=== PATIENT | female | born 1945 | race Caucasian/White ===

== ENCOUNTER 2024-04-26 23:52 | Observation (INO) | payer MEDICARE, OTHER, SELFPAY ==
[2024-04-26 23:52] VITALS: BP 150/68; PULSE 84; TEMP 36.9; O2SAT 95; BMI 22.7
--- NOTE | 2024-04-27 00:14 | ED.BACK1 ---
HPI HPI - Back Pain/Injury General Chief Complaint: Back Pain/Injury Stated Complaint: OTHER Time Seen by Provider: 04/26/24 23:59 Source: patient Mode of arrival: ambulance Limitations: no limitations History of Present Illness HPI Narrative: This 78-year-old female is brought to the emergency department by EMS from home. She had a fall on Saturday and injured her low back. She states that she was wearing slippery socks and lost her balance and slid down the wall and fell right onto her buttocks. She was seen yesterday at [facility] emergency department and had x-rays done. Her family physician had given her a prescription for tramadol which she has been using for pain. She states it does not help her pain that much but makes her sleep. Her granddaughter is here with her. Her granddaughter lives with her. She states she has not been out of bed all day and she is concerned that there is something wrong. The patient is having pain in the right lower lumbar region and right hip. Granddaughter states she can barely walk. The patient admits that she hit her head when she fell but does not think it is an issue. She has no neck pain. She wears a depends but denies any loss of bowel or bladder control which is unusual for her. She has generalized weakness with no specific lower extremity weakness. She has no focal neurologic deficits. She denies any chest pain or shortness of breath. The patient has not really been eating or drinking all day today because she has been sleeping and the pain medication upsets her stomach. Related Data Home Medications ?Medication ?Instructions ?Recorded ?Confirmed bisoprolol 5 1 tab PO DAILY 04/27/24 04/27/24 mg-hydrochlorothiazide 6.25 mg tablet cilostazol 50 mg tablet 50 mg PO BID 04/27/24 04/27/24 latanoprost 0.005 % eye drops 1 drp ophthalmic (eye) DAILY 04/27/24 04/27/24 levothyroxine 88 mcg tablet 88 mcg PO DAILY 04/27/24 04/27/24 ropinirole 1 mg tablet 1 mg PO DAILY 04/27/24 04/27/24 tramadol 50 mg tablet 50 mg PO Q6H PRN pain 04/27/24 04/27/24 Allergies Allergy/AdvReac Type Severity Reaction Status Date / Time Penicillins Allergy Unknown Unknown Verified 04/26/24 23:57 Opioid HPI Opioid Management Most Recent Opioid Data: Last Pain Scale 8 04/27/24 00:03 04/27/24 Last ORT Total Score 0 04/27/24 02:36 04/27/24 Last ORT Risk Category Low Risk 04/27/24 02:36 04/27/24 Review of Systems ROS Status of ROS 10 or more systems reviewed and unremarkable except as noted in history and below PFSH PFSH Social History Highest level of school completed/degree received: Master's degree Little interest or pleasure in doing things: not at all Feeling down, depressed, or hopeless: not at all Exam Narrative Exam Narrative: Vital signs and Nursing Notes reviewed: Patient is afebrile with a normal pulse, blood pressure is elevated at 150/68, she is not hypoxic with pulse ox of 95% on room air General: Awake, alert, oriented, nontoxic elderly female, she winces in pain with any movement of her low back, GCS 15, no respiratory distress HEENT: Normocephalic atraumatic, mucous membranes are moist and pink, eyes are clear, normal conjunctiva, vision is grossly intact, Neck: Supple, no midline bony vertebral cervical tenderness Chest: Lungs are clear to auscultation with good air entry, there is no wheezing rhonchi or rales appreciated no accessory muscle use, patient is speaking in complete sentences-no chest wall tenderness to palpation CVS: Regular rate and rhythm S1-S2, no murmurs rubs or gallops, pulses are brisk and equal bilaterally ABD: Soft, nondistended, nontender, no rebound guarding or rigidity, bowel sounds are normal, no pulsatile masses appreciated, stable pelvic rock Extremities: There is tenderness in the right lateral lumbar region with no midline bony vertebral tenderness or step-off. There is no ecchymosis noted, there is mild tenderness with extension at the right hip. Leg lengths are equal Skin: Normal in appearance without rash,pallor, petechiae or purpura Neuro: No focal deficits Constitutional Vital Signs, click to edit/add: Last Vital Signs Temp 97.9 F 04/27/24 02:36 Pulse 74 04/27/24 02:36 Resp 16 04/27/24 02:36 BP 143/68 H 04/27/24 02:36 Pulse Ox 93 L 04/27/24 02:36 O2 Del Method Room Air 04/27/24 02:36 Course Vital Signs Vital signs: Vital Signs Temperature 98.5 F 04/26/24 23:52 Pulse Rate 84 04/26/24 23:52 Respiratory Rate 18 04/26/24 23:52 Blood Pressure 150/68 H 04/26/24 23:52 Pulse Oximetry 95 04/26/24 23:52 Oxygen Delivery Method Room Air 04/26/24 23:52 Temperature 97.9 F 04/27/24 02:36 Pulse Rate 74 04/27/24 02:36 Respiratory Rate 16 04/27/24 02:36 Blood Pressure 143/68 H 04/27/24 02:36 Pulse Oximetry 93 L 04/27/24 02:36 Oxygen Delivery Method Room Air 04/27/24 02:36 MDM - Back Pain/Injury MDM Narrative Medical decision making narrative: This 78-year-old female presents for evaluation of right low back pain and right hip pain after falling several days ago. The patient had a mechanical fall. She states that she was wearing slippery slot socks and slipped and fell down the wall landing on her buttocks. She denies any loss of consciousness. She has no neck pain. She received a prescription for tramadol from her family physician which has not been helping with her pain but just making her sleep. Her granddaughter took her to [facility] emergency department last night and x-rays were performed that were negative and she was discharged home. She was return to the emergency department by EMS because she is unable to weight-bear due to pain in the right low back. She is able to flex her right knee but does have some hip pain with flexion of the knee. She is tender in the right lower lumbar region but does not have any midline bony vertebral tenderness or step-offs. An IV was placed and she was medicated with Zofran, morphine and Toradol. Her pain was somewhat controlled and routine labs were ordered. She has a normal white count and hemoglobin. Electrolytes are normal. I had ordered a urine and her nurse attempted to help her to the restroom but the patient was unable to successfully sit up and transfer independently to acquire the urine. She stated at that time she felt like she was having muscle spasms in her low back. She was then given IM Norflex. Due to her inability to weight-bear she will be admitted. CT scan of the lumbar spine shows chronic changes with degenerative disc disease but no acute fracture. CT scan of the right hip was also ordered. The results of the CT scan of the hip are not available yet however I reviewed them myself and do not see any notable fracture. The case was discussed with the hospitalist. She will be admitted for pain control and a physical therapy consult. She may require admission to a rehab facility if she is unable to weight-bear after her pain is under control. She has not had any neurologic symptoms including loss of bowel or bladder control. She has no weakness or numbness. Patient and her granddaughter are in agreement with admission. Medical Records Medical records narrative: [place] [address] CT Scan Report Signed Patient: INGRID ARCHIBALD V MR#: [id number] : 1945 Acct:[id number] Age/Sex: 78 / F ADM Date: 04/26/24 Loc: ER Attending Dr: Ordering Physician: Sylvia Ferrell Date of Service: 04/27/24 Procedure(s): CT lumbar spine wo con Accession Number(s): [id number] cc: WINNIE GRACE [facility] [place] [id number] Patient Name: INGRID ARCHIBALD MRN: [id number] date: 1945 Sex: F Assigned Patient Location: ER Current Patient Location: ER Accession/Order Number: [id number] Exam Date: 04/27/2024 00:27 Report Date: 04/27/2024 01:23 At the request of: SYLVIA FERRELL Procedure: CT lumbar spine wo con EXAM: CT lumbar spine wo con HISTORY: Low back and right hip pain after a fall 3 days ago. COMPARISON: None. TECHNIQUE: Axial images of the lumbar spine were obtained without contrast enhancement. Sagittal and coronal reformations were provided. FINDINGS: ALIGNMENT/BONY STRUCTURES: The bones are osteopenic. There is a levoconvex curvature of the vertebral column with apex at L2. No CT evidence of an acute fracture or loss of vertebral body height. There is a mild grade 1 anterolisthesis of L4 on L5 due to facet degenerative change. Multilevel loss of disc space and vacuum disc phenomenon are noted. Osteophytes and reactive sclerosis are also seen along the endplates at several levels. CORD/CONUS: The cord and conus are poorly seen and not well evaluated on this noncontrast CT. OTHER SPINAL FINDINGS: None. DISC SPACES: Multilevel disc bulging, as well as facet degenerative change and thickening of the ligamentum flavum result in areas of canal and foraminal stenosis. NON SPINAL FINDINGS: None. CT/CT lumbar spine wo con IMPRESSION: 1. Osteopenia. 2. Levoconvex scoliosis. 3. Lumbar spondylosis without CT evidence of an acute fracture. Electronically authenticated by: HERMELINDA TOBAR Date: 04/27/2024 01:23 [place] [address] CT Scan Report Signed Patient: INGRID ARCHIBALD V MR#: [id number] : 1945 Acct:[id number] Age/Sex: 78 / F ADM Date: 04/26/24 Loc: [place] 214-[address]: Elena Arango D.O. Ordering Physician: Sylvia Ferrell Date of Service: 04/27/24 Procedure(s): CT hip RT wo con Accession Number(s): [id number] cc: WINNIE GRACE [facility] [place] [id number] Patient Name: INGRID ARCHIBALD MRN: [id number] date: 1945 Sex: F Assigned Patient Location: ER Current Patient Location: [place] Accession/Order Number: [id number] Exam Date: 04/27/2024 00:27 Report Date: 04/27/2024 02:39 At the request of: SYLVIA FERRELL Procedure: CT hip RT wo con EXAM: CT hip RT wo con HISTORY: fall, right low back and hip pain COMPARISON: None. TECHNIQUE: Contiguous thin section axial scans obtained from mid iliac crest through the proximal right femoral diaphysis with coronal and sagittal reformatted images. Images reviewed in bone and soft tissue windows. Dose reduction techniques were achieved by using automated exposure control and/or adjustment of mA and/or kV according to patient size and/or use of iterative reconstruction technique. FINDINGS: No acute or healing fractures are seen in the right hemipelvis, right hip or along the imaged proximal right femur. Pubic rami are maintained. Osteoporosis suspected with significant osseous demineralization. No lytic or blastic bone lesion or destructive process. Right hip joint is well preserved. No narrowing. No joint effusion. Normal pubic symphysis. Inferior right SI joint is maintained. Normal appearance of muscles surrounding the right hip and proximal upper right femur and thigh. Skin and subcutaneous tissues are normal. No right inguinal adenopathy. No right hemipelvis fluid collection or mass or free fluid. No right inguinal hernia. CT/CT hip RT wo con IMPRESSION: 1. No acute bone or joint findings at right hip. 2. Suspected osteoporosis. No destructive changes. These imaging findings do not exclude additional clinically significant abnormalities. Given severe osteoporosis, this does not exclude underlying occult bone marrow edema. If patient cannot bear weight, consider additional MRI follow-up. This report should be interpreted in the context of clinical information including patient symptoms and available laboratory findings. Follow-up imaging or other interventions may be appropriate, if indicated by your clinical impression. Electronically authenticated by: GISELE MAHER Date: 04/27/2024 02:39 Lab Data Labs: Lab Results 04/26/24 Range/Units 23:56 WBC 6.8 (4.0-11.0) 10^3/uL RBC 4.00 L (4.20-5.40) 10^6/uL Hgb 13.1 (12.0-16.0) g/dL Hct 38.0 (36.0-48.0) % MCV 95.0 (81.0-99.0) fL MCH 32.8 (26.7-34.0) pg MCHC 34.5 (29.9-35.2) g/dL RDW 11.5 (11.0-15.0) % Plt Count 241 (150-450) 10^3/uL MPV 10.1 (9.5-13.5) fL Neut % (Auto) 72.2 (43.0-75.0) % Lymph % (Auto) 13.8 L (20.5-60.0) % [place] % (Auto) 13.0 H (1.7-12.0) % Eos % (Auto) 0.4 L (0.9-7.0) % Baso % (Auto) 0.3 (0.2-2.0) % Neut # (Auto) 4.9 (1.4-6.5) 10^3/uL Lymph # (Auto) 0.9 L (1.2-3.8) 10^3/uL [place] # (Auto) 0.9 H (0.3-0.8) 10^3/uL Eos # (Auto) 0.0 (0.0-0.7) 10^3/uL Baso # (Auto) 0.0 (0.0-0.1) 10^3/uL Abs Immat Gran (auto) 0.02 (0.00-0.03) 10^3/uL Imm/Tot Granulo (auto) 0.3 (0.0-0.5) % Sodium 138 (136-145) mmol/L Potassium 3.7 (3.5-5.1) mmol/L Chloride 100 (98-107) mmol/L Carbon Dioxide 28.0 (21.0-32.0) mmol/L Anion Gap 13.7 BUN 17.0 (7.0-18.0) mg/dL Creatinine 0.86 (0.55-1.02) mg/dL Est GFR ( Amer) >60 (>=60 mL/min/1.73m^2) Est GFR (Non-Af Amer) >60 (>=60 mL/min/1.73m^2) BUN/Creatinine Ratio 19.8 Glucose 121 H (74-106) mg/dL Calcium 9.2 (8.5-10.1) mg/dL Total Bilirubin 1.2 H (0.2-1.0) mg/dL AST 16 (15-37) U/L ALT 19 (14-59) U/L Alkaline Phosphatase 113 (46-116) U/L Total Protein 6.6 (6.4-8.2) g/dL Albumin 3.4 (3.4-5.0) g/dL Globulin 3.2 g/dL Albumin/Globulin Ratio 1.1 Discharge Plan Discharge Chief Complaint: Back Pain/Injury Clinical Impression: Strain of lumbar region, Fall from standing, Inability to bear weight Patient Disposition: Admitted as Observation Time of Disposition Decision: 02:47 Condition: Good
[2024-04-27 00:27] LABS: Basophils Percent Auto 0.3 % (0.2-2.0); Eosinophils Percent Auto 0.4 % (0.9-7.0); Hemoglobin 13.1 g/dL (12.0-16.0); Immature Granulocytes Abs Auto 0.02 10^3/uL (0.00-0.03); Immature Granulocytes Pct Auto 0.3 % (0.0-0.5); Lymphocytes Absolute Auto 0.9 10^3/uL (1.2-3.8); Lymphocytes Percent Auto 13.8 % (20.5-60.0); Mean Corpuscular HGB Conc 34.5 g/dL (29.9-35.2); Mean Corpuscular Hemoglobin 32.8 pg (26.7-34.0); Mean Platelet Volume 10.1 fL (9.5-13.5); Monocytes Absolute Auto 0.9 10^3/uL (0.3-0.8); Neutrophils Absolute Auto 4.9 10^3/uL (1.4-6.5); Neutrophils Percent Auto 72.2 % (43.0-75.0); Platelet Count 241 10^3/uL (150-450); Red Cell Distribution Width 11.5 % (11.0-15.0); White Blood Count 6.8 10^3/uL (4.0-11.0)
[2024-04-27] MEDS: ONDANSETRON PF 4 MG/2 ML VIAL IV (00:43)
[2024-04-27] MEDS: KETOROLAC TROMETHAMINE 30 MG/ML VIAL 15 MG IVP (00:43)
[2024-04-27] MEDS: MORPHINE SULFATE 2 MG/ML SYRINGE IV (00:43)
[2024-04-27 00:48] VITALS: PULSE 69; O2SAT 93
[2024-04-27 00:50] LABS: Alanine Aminotransferase 19 U/L (14-59); Albumin Globulin Ratio 1.1; Albumin Level 3.4 g/dL (3.4-5.0); Alkaline Phosphatase 113 U/L (46-116); Anion Gap 13.7; Aspartate Amino Transferase 16 U/L (15-37); BUN Creatinine Ratio 19.8; Bilirubin Total 1.2 mg/dL (0.2-1.0); Calcium 9.2 mg/dL (8.5-10.1); Chloride 100 mmol/L (98-107); Estimated GFR (African America >60 (>=60 mL/min/1.73m^2); Estimated GFR (Non-African Ame >60 (>=60 mL/min/1.73m^2); Globulin 3.2 g/dL; Glucose 121 mg/dL (74-106); Potassium 3.7 mmol/L (3.5-5.1); Sodium 138 mmol/L (136-145); Total Protein 6.6 g/dL (6.4-8.2)
[2024-04-27] MEDS: ORPHENADRINE 60 MG/ 2 ML VIAL IM (01:40)
[2024-04-27 02:23] VITALS: BP 143/68; PULSE 74; O2SAT 93
[2024-04-27 02:36] VITALS: BP 143/68; PULSE 74; TEMP 36.6; O2SAT 93; BMI 22.1
[2024-04-27 04:00] VITALS: BP 119/72; PULSE 79; TEMP 36.4; O2SAT 91
[2024-04-27] MEDS: LEVOTHYROXINE SODIUM 88 MCG TABLET PO (05:44)
[2024-04-27] MEDS: ENOXAPARIN SODIUM 40 MG/0.4 ML SYRINGE SUBQ (05:44)
[2024-04-27] MEDS: ACETAMINOPHEN 325 MG TABLET 1000 MG PO (05:44)
[2024-04-27 05:54] LABS: Basophils Percent Auto 0.5 % (0.2-2.0); Eosinophils Percent Auto 0.5 % (0.9-7.0); Hematocrit 34.3 % (36.0-48.0); Hemoglobin 11.8 g/dL (12.0-16.0); Immature Granulocytes Abs Auto 0.02 10^3/uL (0.00-0.03); Immature Granulocytes Pct Auto 0.4 % (0.0-0.5); Lymphocytes Absolute Auto 1.3 10^3/uL (1.2-3.8); Lymphocytes Percent Auto 22.1 % (20.5-60.0); Mean Corpuscular HGB Conc 34.4 g/dL (29.9-35.2); Mean Corpuscular Hemoglobin 32.7 pg (26.7-34.0); Mean Platelet Volume 10.2 fL (9.5-13.5); Monocytes Absolute Auto 0.8 10^3/uL (0.3-0.8); Monocytes Percent Auto 14.9 % (1.7-12.0); Neutrophils Absolute Auto 3.5 10^3/uL (1.4-6.5); Neutrophils Percent Auto 61.6 % (43.0-75.0); Platelet Count 221 10^3/uL (150-450); Red Blood Count 3.61 10^6/uL (4.20-5.40); Red Cell Distribution Width 11.4 % (11.0-15.0); White Blood Count 5.7 10^3/uL (4.0-11.0)
[2024-04-27 06:05] LABS: Anion Gap 13.2; BUN Creatinine Ratio 20.9; Calcium 8.8 mg/dL (8.5-10.1); Carbon Dioxide 26.5 mmol/L (21.0-32.0); Chloride 102 mmol/L (98-107); Estimated GFR (African America >60 (>=60 mL/min/1.73m^2); Estimated GFR (Non-African Ame >60 (>=60 mL/min/1.73m^2); Glucose 105 mg/dL (74-106); Magnesium 1.9 mg/dL (1.8-2.4); Potassium 3.7 mmol/L (3.5-5.1); Sodium 138 mmol/L (136-145)
[2024-04-27 07:39] VITALS: BP 135/62; PULSE 57; TEMP 36.7; O2SAT 91
--- NOTE | 2024-04-27 08:11 | CM.NOTE ---
Spoke with pt regarding insurance, pt was registered as self-pay. Pt does have Medicare with secondary insurance, copies made of card for billing.
--- NOTE | 2024-04-27 08:19 | PM.HP ---
HPI H&P: HPI History of Present Illness Chief complaint: OTHER Narrative: Patient is a 78 year old white female with past medical history of hypertension, Restless leg syndrome, hypothyroidism and osteoporosis who presented to the ER last night by EMS for back pain. She suffered a fall at home on saturday and was seen at [facility] ER where X-rays where negative for any acute fracture and she was given Tramadol for pain. The pain medication makes her very drowsy. She was not able to get out of bed so grand daughter who also lives with her called EMS. Upon presentation to the ER she could not get out of bed to get to the restroom. She has not loss of bowel or bladder, no fevers or chills. Pain is localized to the right lower back and right hip. ER findings: CT of the lumbar spine and right hip was negative for any acute fracture, possible osteoporosis seen. patient was given Toradol, Morphine for pain and admitted to the hospitalist service for weakness, immobility and intractable pain. CBC and BMP were unremarkable. This morning on exam she says her pain is much improved. Opioid HPI Opioid Management Most Recent Pain and Opioid Data: Last Pain Scale 3 04/27/24 11:00 04/27/24 Last Pain Assessment 04/27/24 11:00 Last MAR Pain Assessment 04/27/24 10:57 Last ORT Total Score 0 04/27/24 02:36 04/27/24 Last ORT Risk Category Low Risk 04/27/24 02:36 04/27/24 Review of Systems ROS Narrative ROS: a complete review of systems were reviewed with patient and are positive as below or listed in History of Chief Complaint. General: no fever, chills, night sweats Head: no headache, trauma, visual changes, nausea or vomiting Skin: no reported rashes, itching or sores Eyes: no blurriness of vision Ears: no reported hearing loss, vertigo, earache, or tinnitus Throat: no sore throat, hoarseness, swelling of neck, or tongue pain Heart: no chest pain Lungs: no shortness of breath or cough GI: no diarrhea or vomiting/nausea Urinary: no urinary urgency, frequency or pain Neuro: no numbness or tingling, right hip and low back pain HEM: no bleeding issues or bruising ENDO: thyroid problems Psych: no anxiety or depression [facility] Medical History (Updated 04/27/24 @ 08:32 by Elena Arango DO) Primary hypertension ?I10 - Essential (primary) hypertension (ICD-10) Restless leg syndrome ?G25.81 - Restless legs syndrome (ICD-10) Hypothyroid ?E03.9 - Hypothyroidism, unspecified (ICD-10) Neuropathy ?G62.9 - Polyneuropathy, unspecified (ICD-10) Surgical History Hx of cholecystectomy ?Z90.49 - Acquired absence of other specified parts of digestive tract (ICD-10) Family History Son Family history of cancer Family history of diabetes mellitus Other Family history of stroke Social History Within the past year, how often did you have a drink containing alcohol: 4 or more times a week Within the past year, how many standard drinks containing alcohol did you have on a typical day: 1 or 2 Within the past year, how often did you have six or more drinks on one occasion: never Total score: 0 Score interpretation: Questions 2 and 3 are 0. It can be assumed that the patient's drinking is below the recommended limits. However, please confirm the accuracy of the patient's alcohol intake over the last few months. Smoking status: Never smoker Non-prescribed substance use: denies use Highest level of school completed/degree received: Master's degree Are you now , , , , never or living with a partner: In a typical week, how many times do you talk on the telephone with family, friends, or neighbors: 3 or more times per week How often do you get together with friends or relatives: 3 or more times per week How often do you attend spiritism or moravian services: 4 or more times per year Do you belong to any clubs or organizations such as spiritism groups unions, fraternal or athletic groups, or school groups: yes Total score: 3 Score interpretation: A score of greater than or equal to 2 indicates the lowest level of social isolation. Little interest or pleasure in doing things: not at all Feeling down, depressed, or hopeless: not at all Feel stressed/tense/nervous/anxious/difficulty sleeping: not at all Gender Identity: female Meds Home Medications and Allergies Home Medications ?Medication ?Instructions ?Recorded ?Confirmed ?Type bisoprolol 5 1 tab PO DAILY 04/27/24 04/27/24 History mg-hydrochlorothiazide 6.25 mg tablet cilostazol 50 mg tablet 50 mg PO BID 04/27/24 04/27/24 History latanoprost 0.005 % eye drops 1 drp ophthalmic (eye) DAILY 04/27/24 04/27/24 History levothyroxine 88 mcg tablet 88 mcg PO DAILY 04/27/24 04/27/24 History ropinirole 1 mg tablet 1 mg PO DAILY 04/27/24 04/27/24 History tramadol 50 mg tablet 50 mg PO Q6H PRN pain 04/27/24 04/27/24 History Allergies Allergy/AdvReac Type Severity Reaction Status Date / Time Penicillins Allergy Unknown Unknown Verified 04/26/24 23:57 Exam Narrative Exam Narrative: General: Patient is alert, and oriented to person, place and time with normal affect, proper hygiene Skin: no visible rashes, or ulcers Head: atraumatic, acephalic Eyes: PERRLA, no nystagmus present, conjunctiva clear, no scleral icterus Ears: normal gross auditory acuity Heart: Normal rate and rhythm, no murmurs/rubs/gallops Lungs: no audible wheezes, crackles and normal breath sounds all lung rubio Abdomen: Normal audible bowel sounds, no distension, No palpable masses, no organomegaly, no rebound/guarding/ or rigidity Musculoskeletal: no swelling bilateral lower extremities, 4/5 strength bilateral lower ext but no pain elicited with internal/external rotation of the hip or straight leg test. Neuro: CN II-X grossly intact Constitutional Vital Signs, click to edit/add: Last Vital Signs Temp 98.1 F 04/27/24 07:39 Pulse 57 L 04/27/24 07:39 Resp 18 04/27/24 07:39 BP 135/62 04/27/24 07:39 Pulse Ox 91 L 04/27/24 07:39 O2 Del Method Room Air 04/27/24 07:39 Results Labs Labs: Short CBC 04/26/24 04/27/24 Range/Units 23:56 05:32 WBC 6.8 5.7 (4.0-11.0) 10^3/uL Hgb 13.1 11.8 L (12.0-16.0) g/dL Hct 38.0 34.3 L (36.0-48.0) % Plt Count 241 221 (150-450) 10^3/uL BMP 04/26/24 04/27/24 23:56 05:32 Sodium 138 138 Potassium 3.7 3.7 Chloride 100 102 Carbon Dioxide 28.0 26.5 BUN 17.0 19.0 H Creatinine 0.86 0.91 Glucose 121 H 105 Calcium 9.2 8.8 Liver Function 04/26/24 Range/Units 23:56 Total Bilirubin 1.2 H (0.2-1.0) mg/dL AST 16 (15-37) U/L ALT 19 (14-59) U/L Alkaline Phosphatase 113 (46-116) U/L Albumin 3.4 (3.4-5.0) g/dL Assessment and Plan Assessment and Plan (1) Fall from standing: Qualifiers: Encounter type: initial encounter Qualified Code(s): W19.XXXA - Unspecified fall, initial encounter (2) Strain of lumbar region: Assessment and Plan: CT negative for fracture, continue pain control and Steroids. PT/OT evaluation today. Patient refuses inpatient rehab, says she has rollator at home and her bathroom is close to her bedroom. Her grand daughter lives with her and helps to care for her. She is amendable to home health services. Qualifiers: Encounter type: initial encounter Qualified Code(s): S39.012A - Strain of muscle, fascia and tendon of lower back, initial encounter (3) Inability to bear weight: Assessment and Plan: improved today, able to use bedside commode (4) Hypothyroid: Assessment and Plan: continue levothryoxine Qualifiers: Hypothyroidism type: acquired Qualified Code(s): E03.9 - Hypothyroidism, unspecified (5) Restless leg syndrome: Assessment and Plan: continue requip (6) Primary hypertension: Assessment and Plan: continue bisoprolol/hctz Plan Patient is a full code continue SCD's for prophylaxis PT/OT evaluation today; patient is observation status and is not expected to cross 2 midnights
[2024-04-27] MEDS: CILOSTAZOL 100 MG TABLET 50 MG PO (09:02)
[2024-04-27] MEDS: METHYLPREDNISOLONE SOD SUCC PF 125 MG/2 ML VIAL IVP (09:02)
[2024-04-27] MEDS: HYDROCHLOROTHIAZIDE 25 MG TABLET 6.25 MG PO (09:02)
[2024-04-27] MEDS: ROPINIROLE HCL 1 MG TABLET PO (09:04)
[2024-04-27] MEDS: METOPROLOL TARTRATE 50 MG TABLET PO (09:04)
--- NOTE | 2024-04-27 09:30 | CM.NOTE ---
Rounds made with Dr. Arango, pt verbalizes pain being controlled today. Denies any pain with exam. PT will evaluate pt today for discharge recommendations.
[2024-04-27] MEDS: LATANOPROST 0.005% 2.5 ML BOTTLE 1 DROP OP (10:17)
[2024-04-27] MEDS: ACETAMINOPHEN 500 MG TABLET 1000 MG PO (10:57)
[2024-04-27 11:28] VITALS: O2SAT 92
--- NOTE | 2024-04-27 12:09 | SWNOTE1 ---
SW met with pt to discuss dc needs. Pt lives at home with a grand-daughter. Her grand-daughter is going back to school and is not always home with her. Pt uses a rollator at home. SW asked pt about falls at home. She stated she has always fallen, for many, many years. She stated this is her norm. SW asked pt why? Pt stated it is something neurological and they have never given her a diagnosis. SW did review Medicare Outpatient Observation Notice with pt. Pt voiced understanding and had no further questions at this time. Pt signed form and copy placed in chart, original given to pt. SW did explain to patient that a short term rehab stay is recommended for her safety. Pt voiced she does not want to go to rehab at this time. SW did explain if she decides she wants to, it would be an out of pocket cost at this time due to observation status. At this time pt is refusing SNF. SW and pt spoke about home health. Pt is agreeable to this. SW provided pt with a list from Medicare.gov with star ratings. Pt would like to use [facility] . Referral sent to [facility] . Referral included face sheet, ED note, H&P, provider notes, case management report, and PT/OT notes.
--- NOTE | 2024-04-27 12:20 | PM.DS1 ---
DS: Providers Provider Date of admission: 04/27/24 02:28 Primary care physician: WINNIE GRACE Attending physician on admission: Elena Arango Consults: 04/27/24 08:24 Physical Therapy Eval and Treat Routine Reason for consultation: weakness and cannot stand, back and right hip pain Has provider been notified: No 04/27/24 08:25 Occupational Therapy Eval and Treat Routine Reason for consultation: weakness and cannot stand, back and right hip pain Has provider been notified: No Discharging clinician: Elena Arango DS: Diagnosis Discharge Diagnosis (1) Fall from standing: Qualifiers: Encounter type: initial encounter Qualified Code(s): W19.XXXA - Unspecified fall, initial encounter (2) Strain of lumbar region: Qualifiers: Encounter type: initial encounter Qualified Code(s): S39.012A - Strain of muscle, fascia and tendon of lower back, initial encounter (3) Inability to bear weight: (4) Hypothyroid: Qualifiers: Hypothyroidism type: acquired Qualified Code(s): E03.9 - Hypothyroidism, unspecified (5) Restless leg syndrome: (6) Primary hypertension: DS: Summary Hospital Course Hospital Course: please see H&P, patient was evaluated by PT and OT recommended inpatient rehab but patient refused. She is amendable to [facility] services. She is to continue work up through her PCP. Continue using walker. Return to the ER with any worsening pain. Given Prednisone 20mg BID x 5 days. Status at Discharge Functional status at discharge: uses cane/walker Overall status at discharge: patient is progressing back to baseline Time Spent with Patient Time attestation: Total time spent providing and/or coordinating discharge services: Time spent: greater than 30 minutes Exam Narrative Exam Narrative: no changes to discharge exam from admitting H&P dated 04/27/24 Constitutional Vital Signs, click to edit/add: Last Vital Signs Temp 98.1 F 04/27/24 07:39 Pulse 57 L 04/27/24 07:39 Resp 18 04/27/24 07:39 BP 135/62 04/27/24 07:39 Pulse Ox 92 L 04/27/24 11:28 O2 Del Method Room Air 04/27/24 11:28 DS: Data Data Completed and Pending Labs on day of discharge: Labs from last 24 hours 04/27/24 04/26/24 05:32 23:56 WBC 5.7 6.8 RBC 3.61 L 4.00 L Hgb 11.8 L 13.1 Hct 34.3 L 38.0 MCV 95.0 95.0 MCH 32.7 32.8 MCHC 34.4 34.5 RDW 11.4 11.5 Plt Count 221 241 MPV 10.2 10.1 Neut % (Auto) 61.6 72.2 Lymph % (Auto) 22.1 13.8 L [place] % (Auto) 14.9 H 13.0 H Eos % (Auto) 0.5 L 0.4 L Baso % (Auto) 0.5 0.3 Neut # (Auto) 3.5 4.9 Lymph # (Auto) 1.3 0.9 L [place] # (Auto) 0.8 0.9 H Eos # (Auto) 0.0 0.0 Baso # (Auto) 0.0 0.0 Abs Immat Gran (auto) 0.02 0.02 Imm/Tot Granulo (auto) 0.4 0.3 Sodium 138 138 Potassium 3.7 3.7 Chloride 102 100 Carbon Dioxide 26.5 28.0 Anion Gap 13.2 13.7 BUN 19.0 H 17.0 Creatinine 0.91 0.86 Est GFR ( Amer) >60 >60 Est GFR (Non-Af Amer) >60 >60 BUN/Creatinine Ratio 20.9 19.8 Glucose 105 121 H Calcium 8.8 9.2 Magnesium 1.9 Total Bilirubin 1.2 H AST 16 ALT 19 Alkaline Phosphatase 113 Total Protein 6.6 Albumin 3.4 Globulin 3.2 Albumin/Globulin Ratio 1.1 Discharge Plan Discharge Disposition: Home Health Service Condition: Good Discharge Medications: New prednisone 20 mg tablet 20 mg PO BID 5 Days Qty: 10 0RF Continued bisoprolol-hydrochlorothiazide 5-6.25 mg tablet 1 tab PO DAILY cilostazol 50 mg tablet 50 mg PO BID latanoprost 0.005 % drops 1 drp OPHTHALMIC (EYE) DAILY levothyroxine 88 mcg tablet 88 mcg PO DAILY ropinirole 1 mg tablet 1 mg PO DAILY Discontinued tramadol 50 mg tablet 50 mg PO Q6H PRN (Reason: pain) Patient Comments: STARTED 04/23/24 Rx Instructions: X 5 DAYS Activity: ambulate only with your walker Diet: advance to your usual diet Print Language: Greenlandic Forms: Portal Instructions Follow Up Appointments: May.06 @ 10:45am with Dr. Grace [phone] Discharge location: [place] [facility]
--- NOTE | 2024-04-27 12:21 | SWNOTE1 ---
Medicare Outpatient Observation Notice reviewed and discussed with patient. Pt. verbalized understanding and signed the form. Original given to patient and copy placed in patient?s chart.
--- NOTE | 2024-04-27 12:46 | CM.NOTE ---
[facility] Updated SW.
--- NOTE | 2024-04-27 12:54 | SWNOTE1 ---
[facility] is able to accept. SW sent over dc med rec and CRF.
--- NOTE | 2024-04-27 13:20 | SWNOTE1 ---
SW faxed over dc med rec, CRF, dc summary, and PT/OT note from today
[2024-04-27] MEDS: FLU VACC QS2024(65UP)/MF59C/PF 60 MCG/0.5 ML SYRINGE IM (13:59)
[2024-04-27] MEDS: PNEUMOCOCCAL 23 VACCINE 25 MCG/0.5 ML SYRINGE IM (14:32)
--- NOTE | 2024-04-28 12:56 | CM.DCFOLLOWU ---
Person spoke with: Nay How are you feeling? Better How is your pain? No pain Did you understand your discharge instructions? Yes Do you have any questions about your discharge instructions? No Were you given any prescriptions at discharge? Yes Were you able to get your prescriptions filled? Yes Do you understand how to take your medications as ordered? Yes Do you have any questions about your follow up appointment and do you plan to keep your follow up appointment? No I changed the appointment to the 8th. Is there anything else that you would like to discuss? No Questions/Comments/Concerns/Other:
== END 2024-04-27 15:38 | disposition home health service (06) ==
LOC: ER 04-27 00:05 → MS 04-27 02:28
PROVIDERS: Registered Nurse; Admitting Provider Family Medicine; Emergency Provider Emergency Medicine; PCP Internal Medicine; Visit Provider Family Medicine
DX: S39.012A Strain of muscle, fascia and tendon of lower back, initial encounter (principal); I10 Essential (primary) hypertension; G25.81 Restless legs syndrome; E03.9 Hypothyroidism, unspecified; M81.0 Age-related osteoporosis without current pathological fracture; W19.XXXA Unspecified fall, initial encounter; R26.2 Difficulty in walking, not elsewhere classified; Z79.890 Hormone replacement therapy; Z79.899 Other long term (current) drug therapy; Z23 Encounter for immunization
CPT/HCPCS: 36415; 72131; 73700; 80048; 80053; 81001; 83735; 85025; 90662; 90732; 94761; 96372; 96374; 96375; 97162; 97165; 99285; G0008; G0009; G0378; J1650; J1885; J2270; J2360; J2405; J2919

== ENCOUNTER 2024-05-31 11:27 | Observation (INO) | payer MEDICARE, OTHER, SELFPAY ==
[2024-05-31] VITALS (9 sets, daily range): BP systolic 124–157; BP diastolic 65–78; PULSE 63–85; TEMP 36.6–36.8; O2SAT 90–99; BMI 22.5; BMI 21.7
--- NOTE | 2024-05-31 11:40 | XR_ITS ---
[facility] [place] [id number] Patient Name: INGRID ARCHIBALD MRN: [id number] date: 1945 Sex: F Assigned Patient Location: ER Current Patient Location: ED.MAIN Accession/Order Number: [id number] Exam Date: 05/31/2024 11:55 Report Date: 05/31/2024 15:35 At the request of: COLLEEN DIMAS Procedure: XR chest 1V EXAM: XR chest 1V HISTORY: weak history of frequent falls. COMPARISON: Chest x-ray as part of abdominal series 03/05/2015. TECHNIQUE: AP upright chest x-ray FINDINGS: Increased density left lung base retrocardiac area obliterates the diaphragm and costophrenic angle. Question infiltrate chest atelectasis and adjacent pleural effusion. Follow-up recommended. Left mid and upper lung clear. Right lung clear. Heart size borderline accentuated by magnification. Right pleural space normal. No pneumothorax. No displaced fracture. XR/XR chest 1V IMPRESSION: Increased density retrocardiac area left lung base question infiltrate/atelectasis in the lung and adjacent pleural effusion. Follow-up recommended. Electronically authenticated by: IVETT ESCOBAR Date: 05/31/2024 15:35
--- NOTE | 2024-05-31 11:40 | ECG_ITS ---
[facility] Test Date: 2024-05-31 Pat Name: INGRID ARCHIBALD Department: Room: - Gender: Female Credit Controller: : 1945 Requested By: Order Number: [id number] Reading MD: RENO SANDOVAL Measurements Intervals [place] Rate: 81 P: 37 MN: 148 QRS: -22 QRSD: 70 T: -3 QT: 332 QTc: 369 Interpretive Statements 1100 Sinus rhythm Low voltage across the precordium 3634 Inferior myocardial infarction, age undetermined 6220 Possible left atrial enlargement 9150 abnormal ECG No previous ECG available for comparison Electronically Signed On 06-01-2024 6:52:18 EST by RENO SANDOVAL
--- NOTE | 2024-05-31 11:42 | ED_ITS ---
HPI HPI - General Adult General Chief complaint: Weakness Stated complaint: WEAKNESS Time Seen by Provider: 05/31/24 11:36 Source: patient Mode of arrival: Wheelchair Limitations: no limitations History of Present Illness HPI narrative: 78-year-old female presents to the emergency department for generalized weakness. She is brought in by family member who gives most of the history. The patient had fallen in late March and was admitted to this hospital and ultimately discharged home. She had workup including CAT scans, all of which were negative. Family member states that subsequently she has had increasing weakness and is having a great deal of difficulty getting up and walking. She does not complain of fever vomiting or dysuria. Related Data Home Medications ?Medication ?Instructions ?Recorded ?Confirmed bisoprolol 5 1 tab PO DAILY 04/27/24 05/31/24 mg-hydrochlorothiazide 6.25 mg tablet cilostazol 50 mg tablet 50 mg PO BID 04/27/24 05/31/24 levothyroxine 88 mcg tablet 88 mcg PO DAILY 04/27/24 05/31/24 ropinirole 1 mg tablet 1 mg PO DAILY 04/27/24 05/31/24 bimatoprost 0.01 % eye drops 1 drp ophthalmic (eye) DAILY 05/31/24 05/31/24 (Mary) Previous Rx's ?Medication ?Instructions ?Recorded prednisone 20 mg tablet 20 mg PO BID 5 days #10 tabs 04/27/24 Allergies Allergy/AdvReac Type Severity Reaction Status Date / Time Penicillins Allergy Unknown Unknown Verified 05/31/24 11:52 Opioid HPI Opioid Management Most Recent Opioid Data: Last Pain Scale 3 04/27/24 11:00 04/27/24 Last ORT Total Score 0 04/27/24 02:36 04/27/24 Last ORT Risk Category Low Risk 04/27/24 02:36 04/27/24 Review of Systems ROS Narrative A ten point review of systems is negative except as noted above. [facility] Medical History (Updated 05/31/24 @ 15:00 by Twin Kunz MD) Primary hypertension ?I10 - Essential (primary) hypertension (ICD-10) Restless leg syndrome ?G25.81 - Restless legs syndrome (ICD-10) Hypothyroid ?E03.9 - Hypothyroidism, unspecified (ICD-10) Neuropathy ?G62.9 - Polyneuropathy, unspecified (ICD-10) Surgical History Hx of cholecystectomy ?Z90.49 - Acquired absence of other specified parts of digestive tract (ICD- 10) Family History Son Family history of cancer Family history of diabetes mellitus Other Family history of stroke Social History Within the past year, how often did you have a drink containing alcohol: 4 or more times a week Within the past year, how many standard drinks containing alcohol did you have on a typical day: 1 or 2 Within the past year, how often did you have six or more drinks on one occasion: never Total score: 0 Score interpretation: Questions 2 and 3 are 0. It can be assumed that the patient's drinking is below the recommended limits. However, please confirm the accuracy of the patient's alcohol intake over the last few months. Smoking status: Never smoker Non-prescribed substance use: denies use Highest level of school completed/degree received: Master's degree Are you now , , , , never or living with a partner: In a typical week, how many times do you talk on the telephone with family, friends, or neighbors: 3 or more times per week How often do you get together with friends or relatives: 3 or more times per week How often do you attend baptist or jewish services: 4 or more times per year Do you belong to any clubs or organizations such as baptist groups unions, fraternal or athletic groups, or school groups: yes Total score: 3 Score interpretation: A score of greater than or equal to 2 indicates the lowest level of social isolation. Little interest or pleasure in doing things: not at all Feeling down, depressed, or hopeless: not at all Feel stressed/tense/nervous/anxious/difficulty sleeping: not at all Gender Identity: female Exam Narrative Exam Narrative: Nurses note and vital signs reviewed and patient is not hypoxic. General: The patient appears well and in no apparent distress. Patient is resting comfortably on cart. Skin: Warm, dry, no pallor noted. There is no rash noted. Head: Normocephalic, atraumatic Eye: Normal conjunctiva, no drainage Ears, Nose, Mouth, and Throat: oral mucosa is moist. Nares patent. Cardiovascular: Regular Rate and Rhythm Respiratory: Patient is in no distress, no accessory muscle use, lungs are clear to auscultation, no wheezing, rales or rhonchi GI: Soft and nontender Musculoskeletal: The patient has no evidence of calf tenderness, no pitting edema, symmetrical pulses noted bilaterally; no palpable tenderness to her extremities including her hips. Neurological: A&O, normal speech; all 4 extremities have good range of motion Psychiatric: Cooperative Constitutional Vital Signs, click to edit/add: Last Vital Signs Temp 98.1 F 05/31/24 11:36 Pulse 74 05/31/24 14:01 Resp 18 05/31/24 14:01 BP 129/65 05/31/24 14:01 Pulse Ox 96 05/31/24 14:01 O2 Del Method Room Air 05/31/24 14:01 Course Vital Signs Vital signs: Vital Signs Temperature 98.1 F 05/31/24 11:36 Pulse Rate 85 05/31/24 11:36 Respiratory Rate 18 05/31/24 11:36 Blood Pressure 157/78 H 05/31/24 11:36 Pulse Oximetry 99 05/31/24 11:36 Oxygen Delivery Method Room Air 05/31/24 11:36 Temperature 98.1 F 05/31/24 11:36 Pulse Rate 74 05/31/24 14:01 Respiratory Rate 18 05/31/24 14:01 Blood Pressure 129/65 05/31/24 14:01 Pulse Oximetry 96 05/31/24 14:01 Oxygen Delivery Method Room Air 05/31/24 14:01 Medical Decision Making [facility] Narrative Medical decision making narrative: Laboratory analysis is negative at this point. Chest x-ray report is pending. Family members concerned about her going home so should be admitted for observation. She had been admitted for observation a month ago and at that time refused rehab facility. Treatment diagnosis and disposition were discussed with the patient and her family member Differential Diagnosis Differential Diagnosis: Generalized weakness, dehydration, anemia, UTI Lab Data Lab results reviewed: Yes I reviewed the patient's lab results Labs: Lab Results 05/31/24 05/31/24 05/31/24 Range/Units 11:45 11:51 12:29 WBC 7.1 (4.0-11.0) 10^3/uL RBC 3.86 L (4.20-5.40) 10^6/uL Hgb 12.5 (12.0-16.0) g/dL Hct 36.8 (36.0-48.0) % MCV 95.3 (81.0-99.0) fL MCH 32.4 (26.7-34.0) pg MCHC 34.0 (29.9-35.2) g/dL RDW 11.4 (11.0-15.0) % Plt Count 291 (150-450) 10^3/uL MPV 10.0 (9.5-13.5) fL Neut % (Auto) 73.8 (43.0-75.0) % Lymph % (Auto) 11.9 L (20.5-60.0) % [place] % (Auto) 11.7 (1.7-12.0) % Eos % (Auto) 0.6 L (0.9-7.0) % Baso % (Auto) 0.6 (0.2-2.0) % Neut # (Auto) 5.2 (1.4-6.5) 10^3/uL Lymph # (Auto) 0.8 L (1.2-3.8) 10^3/uL [place] # (Auto) 0.8 (0.3-0.8) 10^3/uL Eos # (Auto) 0.0 (0.0-0.7) 10^3/uL Baso # (Auto) 0.0 (0.0-0.1) 10^3/uL Abs Immat Gran (auto) 0.10 H (0.00-0.03) 10^3/uL Imm/Tot Granulo (auto) 1.4 H (0.0-0.5) % Sodium 141 (136-145) mmol/L Potassium 3.7 (3.5-5.1) mmol/L Chloride 103 (98-107) mmol/L Carbon Dioxide 27.9 (21.0-32.0) mmol/L Anion Gap 13.8 BUN 16.0 (7.0-18.0) mg/dL Creatinine 0.95 (0.55-1.02) mg/dL Est GFR ( Amer) >60 (>=60 mL/min/1.73m^2) Est GFR (Non-Af Amer) 57 L (>=60 mL/min/1.73m^2) BUN/Creatinine Ratio 16.8 Glucose 117 H (74-106) mg/dL Calcium 9.4 (8.5-10.1) mg/dL Urine Color Yellow (YELLOW) Urine Clarity Clear (CLEAR) Urine pH 6.0 (5.0-9.0) Ur Specific [place] 1.020 (1.005-1.025) Urine Protein Trace (NEG/TRACE) mg/dL Urine Glucose (UA) Negative (NEGATIVE) mg/dL Urine Ketones Negative (NEGATIVE) mg/dL Urine Occult Blood Negative (NEGATIVE) Urine Nitrite Negative (NEGATIVE) Urine Bilirubin Negative (NEGATIVE) Urine Urobilinogen 0.2 (0.2-1.0) EU/dL Ur Leukocyte Esterase Negative (NEGATIVE) Urine RBC None seen (0-2) #/HPF Urine WBC None seen (NONE SEEN) #/HPF Ur Squamous Epith Cells Few A (NONE/RARE) #/LPF Urine Crystals None seen (None Seen) #/HPF Urine Bacteria Trace A (NONE SEEN) #/HPF Urine Casts None seen (NONE SEEN) #/LPF Urine Mucus Trace A (NONE SEEN) Ur Culture Indicated? No Influenza Type A Ag Negative Influenza Type B Ag Negative SARS-CoV-2 Ag (CV2AG) Negative (NEGATIVE) ECG Data Attestation: I personally reviewed and interpreted this ECG as follows: (EKG on my interpretation shows sinus rhythm without acute change and a rate of 81) Discharge Plan Discharge Chief Complaint: Weakness Clinical Impression: Generalized weakness Patient Disposition: Admitted as Observation Time of Disposition Decision: 15:00 Condition: Fair
--- OUTSIDE RECORDS SUMMARY | 2024-05-31 11:43 | XMS_ITS | CCD ---
Author Organization [facility] Care Team Providers Care Bus Person Dishwasher Name Role Phone Winnie Lynn MD Primary Care Provider WINNIE LYNN Attending Unavailable WINNIE LYNN Referring Unavailable WINNIE LYNN Primary Care Unavailable WINNIE LYNN Referring Unavailable WINNIE LYNN Primary Care Unavailable WINNIE LYNN Primary Care Unavailable Winnie Lynn MD Primary Care Provider WINNIE LYNN Attending Unavailable WINNIE LYNN Referring Unavailable WINNIE LYNN Primary Care Unavailable WINNIE LYNN Attending Unavailable WINNIE LYNN Referring Unavailable WINNIE LYNN Primary Care Unavailable WINNIE LYNN Attending Unavailable WINNIE LYNN Referring Unavailable WINNIE LYNN Primary Care Unavailable Allergies Allergy Classification Reported Allergen(s) Allergy Type Date of Onset Reaction(s) Facility (7 sources) Erythromycin; Translations: [ERYTHROMYCIN] Drug Allergy 08-25-2020 [facility] (7 sources) Penicillins; Translations: [PENICILLINS] Propensity to adverse reactions to drug 04-10-2017 [facility] Medications Current Medications Medication Drug Class(es) Dates Sig (Normalized) Sig (Original) Bisoprolol / hydroCHLOROthiazide (6 sources) Thiazide Diuretic, beta-Adrenergic Ramon Start: 05-08-2024 take 1 tablet by mouth once daily Bisoprolol-[place] chlorothiazide 5-6.25 mg tablet Active 1 TAB PO Daily May 08, 2024 12:00am Start: 10-31-2023 take 1 tablet by dany th once in the morning bisoprolol-hydroCHLOROthiazide (ZIAC) 5- 6.25 mg per tablet Take 1 tablet by mouth in the morning. 90 tablet 3 10/31/2023 Active Start: 10-29-2022 take 1 tablet by dany th once in the morning bisoprolol-hydroCHLOROthiazide (ZIAC) 5- 6.25 mg per tablet Take 1 tablet by mouth in the morning. 90 tablet 3 10/29/2022 Active cholecalciferol 0.05 mg oral capsule (5 sources) Vitamin D take 1 capsule by mouth in the morning cholecalciferol, vitamin D3, 2,000 units capsule Take 1 capsule (2,000 Units total) by mouth in the morning. Active cilostazol 50 mg oral tablet (7 sources) Phosphodiesterase 3 Inhibitor Start: 2023 take 1 tablet by mouth once daily Cilostazol 50 mg tablet Active 50 MG PO Daily May 08, 2024 12:00am Start: 04-15-2023 End: 09-20-2023 take 1 tablet by mouth at bedtime cilostazoL (PLETAL) 50 mg tablet Indications: PAD (peripheral artery disease) ([facility]) , Raynaud's disease without gangrene TAKE 1 TABLET BY MOUTH IN THE MORNING AND BEFORE BEDTIME 60 tablet 1 09/20/2023 Active folic acid/multivit-min/lute in (CENTRUM SILVER ORAL) (5 sources) folic acid/multi vit-min/lutein (CENTRUM SILVER ORAL) Take by mouth daily. Active folic acid/multi vit-min/lutein (CENTRUM SILVER ORAL) Take by mouth daily. 0 Active hydrocortisone 10 mg/ml topical lotion (1 source) Corticosteroid Start: 11-30-2022 hydrocortisone (HYTONE) 1 % lotion Indications: Allergic contact dermatitis, unspecified trigger Apply 1 Application topically in the morning and 1 Application before bedtime. 118 mL 0 11/30/2022 Active latanoprost 0.05 mg/ml ophthalmic solution (1 source) Prostaglandin Analog Start: 05-08-2024 Latanoprost 0.005 % drops Active DROPS OPHTHALMIC May 08, 2024 12:00am levothyroxine sodium 0.088 mg oral tablet (6 sources) l-Thyroxine Start: 10-31-2023 take 1 tablet by mouth once daily Levothyroxine 88 mcg tablet Active 88 MCG PO Daily May 08, 2024 12:00am Start: 10-29-2022 take 1 tablet by dany th in the morning levothyroxine (SYNTHROID, LEVOTHROID) 88 MCG tablet Take 1 tablet (88 mcg total) by mouth in the morning. 90 tablet 3 10/29/2022 Active methylPREDNISolone 4 mg oral tablet (1 source) Corticosteroid Start: 11-30-2022 take 1 tablet by mouth in the morning methylPREDNISolone (MEDROL, OTILIA,) 4 mg tablet Indications: Allergic contact dermatitis, unspecified trigger Take 1 tablet (4 mg total) by mouth in the morning. follow package directions. 21 tablet 0 11/30/2022 Active rOPINIRole 1 mg oral tablet (6 sources) Nonergot Dopamine Agonist Start: 10-31-2023 take 1 tablet by mouth once daily Ropinirole 1 mg tablet Active 1 MG PO Daily May 08, 2024 12:00am Start: 04-15-2023 take 1 tablet by dany th once daily rOPINIRole (REQUIP) 1 mg tablet TAKE 1 TABLET BY MOUTH EVERY DAY NIGHTLY 90 tablet 2 04/15/2023 Active traMADol hydrochloride 50 mg oral tablet (4 sources) Opioid Agonist Start: 05-08-2024 take 1 tablet by mouth once daily Tramadol 50 mg tablet Active 50 MG PO Daily May 08, 2024 12:00am Start: 04-23-2024 End: 04-28-2024 take 1 tablet by mouth every six hours as needed for pain traMADoL (ULTRAM) 50 mg tablet Indications: Acute midline low back pain without sciatica Take 1 tablet (50 mg total) by mouth every 6 (six) hours as needed for pain for up to 5 days. 20 tablet 04/23/2024 04/28/2024 Active vitamin b12 1 mg oral tablet (5 sources) Vitamin B12 cyanocobalamin 1 000 MCG tablet Take by mouth daily. Active Problems Active Problems Problem Classification Problem Date Documented Da te Episodic/Chronic Disorders of lipid metabolism (2 sources) Pure hypercholesterolemi a, unspecified; Translations: [Pure hypercholesterolemi a, unspecified] Onset: 10-31-2023 Chronic Essential hypertension (8 sources) Hypertensive disorder; Translations: [Essential (primary) hypertension] Onset: 09-08-2020 09-08-2020 Chronic Nutritional deficiencies (2 sources) Vitamin D deficiency, unspecified; Translations: [Vitamin D deficiency, unspecified] Onset: 10-31-2023 Chronic Other circulatory disease (1 source) Raynaud's disease; Translations: [Raynaud's syndrome without gangrene] 09-20-2023 Chronic Other circulatory disease (1 source) Raynaud's syndrome without gangrene; Translations: [Raynaud's syndrome without gangrene] Onset: 10-31-2023 Chronic Other hereditary and degenerative nervous system conditions (6 sources) Restless legs; Translations: [Restless legs syndrome] 09-11-2021 Chronic Other hereditary and degenerative nervous system conditions (1 source) Restless legs syndrome; Translations: [Restless legs syndrome] Onset: 09-11-2021 Chronic Other nervous system disorders (8 sources) Neuromyopathy; 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, unspecified] 09-08-2020 Episodic Other upper respiratory infections (1 source) Acute pharyngitis, unspecified; Translations: [Acute pharyngitis] 05-08-2024 Episodic Peripheral and visceral atherosclerosis (7 sources) Peripheral vascular disease, unspecified; Translations: [Peripheral vascular disease, unspecified] Onset: 10-24-2020 09-20-2023 Chronic Spondylosis; intervertebral disc disorders; other back problems (1 source) Spondylosis without myelopathy or radiculopathy, lumbar region; Translations: [Spondylosis without myelopathy or radiculopathy, lumbar region] Onset: 04-25-2024 Chronic Spondylosis; intervertebral disc disorders; other back problems (3 sources) Acute low back pain; Translations: [Acute midline low back pain without sciatica] Onset: 04-23-2024 04-23-2024 Episodic Thyroid disorders (8 sources) Hypothyroidism; Translations: [Hypothyroidism, unspecified] Onset: 09-08-2020 09-08-2020 Chronic Unclassified (1 source) Back Pains Onset: 04-25-2024 Unclassified (1 source) hospital discharge Onset: 05-18-2024 Unclassified (1 source) Annual Exam Onset: 10-31-2023 Past or Other Problems Problem Classification Problem Date Documented Da te Episodic/Chronic Diabetes mellitus without complication (2 sources) Hyperglycemia, unspecified; Translations: [Hyperglycemia, unspecified] Onset: 10-31-2023 Episodic Mood disorders (5 sources) Mood disorders Onset: 10-29-2022 Resolved: 10-31-2023 10-29-2022 Other nervous system disorders (1 source) Myoneural disorder, unspecified; 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, unspecified] Onset: 09-08-2020 Episodic Other screening for suspected conditions (not mental disorders or infectious disease) (2 sources) Encounter for screening mammogram for malignant neoplasm of breast; Translations: [Encounter for screening mammogram for malignant neoplasm of breast] Onset: 10-31-2023 Episodic Results Test Name Value Interpretation Reference Range Facility No Panel InformationOrdered By: Melvina Vuong on 05-08-2024 Quick Strep (POC) [facility] XR SPINE LUMBAR 2 OR 3 VWSon 04-25-2024 XR SPINE LUMBAR 2 OR 3 VWS XR SPINE LUMBAR 2 OR 3 VWS CLINICAL HISTORY: fall, pain and chronic low back pain. COMPARISON: None. FINDINGS: 3 views of the lumbar spine were obtained. There are 5 lumbar vertebral bodies identified. The vertebral body height are well maintained. Severe disc space narrowing at L1-2, L2-3, L3-4 and to a lesser extent at L4-5 level. There is no evidence of spondylolysis with grade 1 spondylolisthesis at L4-5 secondary to facet joint disease. Bony spurring at multiple levels anteriorly and levoconvex lumbar scoliosis.. There is no evidence of compression deformity or paraspinal opacity. Metallic clips in the right upper quadrant from prior cholecystectomy. IMPRESSION: Multilevel lumbar spondylosis and levoconvex scoliosis. Anterolisthesis at L4-5 level secondary to facet joint disease. Finalized by Silvano Muñoz MD on 04/25/2024 1:18 PM Normal [facility] COMPREHENSIVE METABOLIC PANE Binu 04-09-2024 Albumin [Mass/Vol] 4.0 g/dL Normal 3.2-5.3 [facility] Comment on above: Performed By: #### H A1C, CMP, 92520-0, THYR, 91966-9 #### [facility] ([id number]) [address], [address] [place] [address] ALP [Catalytic activity/Vol] 90 U/L Normal 39-130 [facility] Comment on above: Performed By: #### H A1C, CMP, 13856-6, THYR, 11511-3 #### [facility] ([id number]) [address], [address] [place] [address] ALT [Catalytic activity/Vol] 14 U/L Normal 0-31 [facility] Comment on above: Performed By: #### H A1C, CMP, 99345-1, THYR, 04605-2 #### [facility] ([id number]) [address], [address] [place] [address] Anion gap [Moles/Vol] 9 mmol/L Normal 5-15 [facility] Comment on above: Performed By: #### H A1C, CMP, 29347-1, THYR, 26491-0 #### [facility] ([id number]) [address], [address] [place] [address] AST [Catalytic activity/Vol] 17 U/L Normal 0-41 [facility] Comment on above: Performed By: #### H A1C, CMP, 91090-9, THYR, 35410-7 #### [facility] ([id number]) [address], [address] [place] [address] Bilirubin [Mass/Vol] 0.6 mg/dL Normal 0.3-1.2 [facility] Comment on above: Performed By: #### H A1C, CMP, 35994-6, THYR, 43712-2 #### [facility] ([id number]) [address], [address] [place] [address] Calcium [Mass/Vol] 9.2 mg/dL Normal 8.5-10.5 [facility] Comment on above: Performed By: #### H A1C, CMP, 71594-9, THYR, 92798-7 #### [facility] ([id number]) [address], [address] [place] [address] Chloride [Moles/Vol] 103 mmol/L Normal 98-109 [facility] Comment on above: Performed By: #### H A1C, CMP, 80344-1, THYR, 42966-2 #### [facility] ([id number]) [address] [place] [address] CO2 [Moles/Vol] 30 mmol/L Normal 22-32 [facility] Comment on above: Performed By: #### H A1C, CMP, 08924-5, THYR, 71631-6 #### [facility] ([id number]) [address], [address] [place] [address] Creatinine [Mass/Vol] 0.75 mg/dL Normal 0.40-1.00 [facility] Comment on above: Result Comment: METH OD TRACEABLE TO IDMS STANDARD Performed By: #### H A1C, CMP, 96258-8, THYR, 48018-7 #### [facility] ([id number]) [address] [place] [address] GFR/1.73 sq M.predicted among non-blacks MDRD (S/P/Bld) [Vol rate/Area] 82 mL/min/{1.73_m2} Normal >59 [facility] Comment on above: Result Comment: Reported eGFR is based on the CKD-EPI 2020 equation that does not use a race coefficient. Performed By: #### H A1C, CMP, 21218-4, THYR, 62794-5 #### [facility] ([id number]) [address], [address] [place] [address] Glucose [Mass/Vol] 111 mg/dL High 65-99 [facility] Comment on above: Performed By: #### H A1C, CMP, 00142-8, THYR, 42764-6 #### [facility] ([id number]) [address] [place] [address] Potassium [Moles/Vol] 3.7 mmol/L Normal 3.5-5.0 [facility] Comment on above: Performed By: #### H A1C, CMP, 09346-1, THYR, 51102-2 #### [facility] ([id number]) [address], [address] [place] [address] Protein [Mass/Vol] 6.3 g/dL Normal 6.0-8.0 [facility] Comment on above: Performed By: #### H A1C, CMP, 85760-6, THYR, 40275-6 #### [facility] ([id number]) [address], [address] [place] [address] Sodium [Moles/Vol] 142 mmol/L Normal 134-146 [facility] Comment on above: Performed By: #### H A1C, CMP, 23372-9, THYR, 34370-2 #### [facility] ([id number]) [address], [address] [place] [address] Urea nitrogen [Mass/Vol] 26 mg/dL Normal 5-27 [facility] Comment on above: Performed By: #### H A1C, CMP, 21473-2, THYR, 76344-8 #### [facility] ([id number]) [address], [address] [place] [address] HGB A1C (GLYCO-HGB)on 2023 Glucose [Mass/Vol] 108 mg/dL Normal [facility] Comment on above: Performed By: #### H A1C, CMP, 67143-6, THYR, 26065-5 #### [facility] ([id number]) [address], [address] [place] [address] HbA1c (Bld) [Mass fraction] 5.4 % Normal 4.4-5.6 [facility] Comment on above: Result Comment: NOTE ADA Guidelines Result HgbA1c Normal : less than 5.7 % Prediabetes : 5.7 % to 6.4 % Diabetes : > 6.4 % Use with caution in patients with abnormal hemoglobin variants as the half-life of red blood cells and in vivo glycation rates are affected. Performed By: #### H A1C, CMP, 47433-8, THYR, 76205-4 #### [facility] ([id number]) [address], [address] [place] [address] Lipid 1996 panelon 4 Cholesterol [Mass/Vol] 192 mg/dL Normal 150-200 [facility] Comment on above: Performed By: #### H A1C, CMP, 62979-8, THYR, 85386-1 #### [facility] ([id number]) [address], [address] [place] [address] Cholesterol in HDL [Mass/Vol] 59 mg/dL Normal >39 [facility] Comment on above: Result Comment: HDL <40 mg/dL - High Risk HDL > or = 40mg/dL- Desirable HDL >60 mg/dL - Negative Risk Performed By: #### H A1C, CMP, 46232-8, THYR, 40528-2 #### [facility] ([id number]) [address], [address] [place] [address] Cholesterol in LDL [Mass/Vol] 103 mg/dL Normal <130 [facility] Comment on above: Result Comment: LDL <100 mg/dL - Desirable LDL >160 mg/dL - High Risk Performed By: #### H A1C, CMP, 99616-7, THYR, 56192-1 #### [facility] ([id number]) [address], [address] [place] [address] Cholesterol in VLDL [Mass/Vol] 30 mg/dL Normal 0-30 [facility] Comment on above: Performed By: #### H A1C, CMP, 87615-7, THYR, 32983-2 #### [facility] ([id number]) [address], [address] [place] [address] CHOLESTEROL:HDL 3.3 Normal 1.0-5.0 [facility] Comment on above: Performed By: #### H A1C, CMP, 57331-0, THYR, 29462-9 #### [facility] ([id number]) [address], [address] [place] [address] Triglyceride [Mass/Vol] 150 mg/dL Normal 27-150 [facility] Comment on above: Performed By: #### H A1C, CMP, 64728-1, THYR, 96264-1 #### [facility] ([id number]) [address], [address] [place] [address] THYROID PROFILEon 04-09-2024 Free T4 [Mass/Vol] 1.11 ng/dL Normal 0.61-1.60 [facility] Comment on above: Performed By: #### H A1C, [facility], 79740-0, THYR, 78438-7 #### [facility] ([id number]) [address], [address] [place] [address] TSH 0.12 uIU/mL Low 0.49-4.67 [facility] Comment on above: Performed By: #### H A1C, CMP, 20045-7, THYR, 66798-0 #### [facility] ([id number]) [address], [address] [place] [address] Vitamin D+Metabolites [Mass/ Vol]on 04-09-2024 VITAMIN D 25 HYD TOT 79.9 ng/mL Normal 30-100 [facility] Comment on above: Result Comment: Vitamin D status 25 [place] Vitamin D Deficiency <20 ng/mL Insufficiency 20-29 ng/mL Sufficiency 30-100 ng/mL Toxicity >100 ng/mL NOTE: A pediatric reference range has not been established by the joint maker machine of this kit. The [place] [employer] recommends a Vitamin D level of = or >20ng/mL in infants and children. 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 Computer aided detection was utilized. FINDINGS: The breasts are heterogeneously dense, which may obscure small masses. There are no suspicious masses, calcifications, or areas of architectural distortion. IMPRESSION: No mammographic evidence of malignancy. BI-RADS: BI-RADS 1 - Negative Recommendation: Routine screening mammogram in 1 year. Finalized by Andres Lopez MD on 11/14/2023 3:12 PM 1 c MAMM 1 YR Normal [facility] Vital Signs Date Time Vital Sign Value Performing Clinician Faci nurys 05-18-2024 10:04-0500 Body mass index (BMI) [Ratio] 23.05 kg/m2 Winnie Lynn MD Work Phone: [facility] 05-18-2024 10:04-0500 Body weight 53.52 kg Winnie Lynn MD Work Phone: [facility] 05-18-2024 10:04-0500 Diastolic blood pressure 75 mm[Hg] Winnie Lynn MD Work Phone: [facility] 05-18-2024 10:04-0500 Heart rate 82 /min Winnie Lynn MD Work Phone: [facility] 05-18-2024 10:04-0500 Systolic blood pressure 133 mm[Hg] Winnie Lynn MD Work Phone: [facility] 05-08-2024 16:04-0500 Body height 154.94 cm [facility] 05-08-2024 16:04-0500 Body mass index (BMI) [Ratio] 22.8 kg/m2 [facility] 05-08-2024 16:04-0500 Body temperature 97.8 [degF] [facility] 05-08-2024 16:04-0500 Body weight 54.88 kg [facility] 05-08-2024 16:04-0500 Diastolic blood pressure 81 mm[Hg] [facility] 05-08-2024 16:04-0500 Heart rate 70 /min [facility] 05-08-2024 16:04-0500 Respiratory rate 18 /min [facility] 05-08-2024 16:04-0500 SaO2% (BldA) [Mass fraction] 97 % [facility] 05-08-2024 16:04-0500 Systolic blood pressure 163 mm[Hg] [facility] 04-23-2024 10:50-0400 Body mass index (BMI) [Ratio] 22.26 kg/m2 Winnie Lynn MD Work Phone: [facility] 04-23-2024 10:50-0400 Body weight 51.71 kg Winnie Lynn MD Work Phone: [facility] 04-23-2024 10:50-0400 Diastolic blood pressure 70 mm[Hg] Winnie Lynn MD Work Phone: [facility] 04-23-2024 10:50-0400 Heart rate 86 /min Winnie Lynn MD Work Phone: [facility] 04-23-2024 10:50-0400 Systolic blood pressure 144 mm[Hg] Winnie Lynn MD Work Phone: [facility] Encounters Encounter Date Encounter Type Care Provider Facility Start: 05-18-2024 End: 05-18-2024 Office outpatient visit 15 minutes [facility] Comment on above: Neuromuscular disord er ([facility]) (Primary Dx) Start: 05-18-2024 End: 05-18-2024 ambulatory [facility] Start: 05-08-2024 End: 05-08-2024 ambulatory [facility] Work Phone: Start: 05-08-2024 End: 05-08-2024 Patient encounter procedure [facility] Work Phone: Start: 04-28-2024 End: 04-28-2024 Telephone encounter Anel Hodges RN [facility] Comment on above: Transition Of Care Start: 04-27-2024 End: 04-28-2024 Telephone encounter Yudith Lora C[facility] Comment on above: Er Follow-up Start: 04-25-2024 End: 04-25-2024 Emergency department patient visit [facility] Start: 04-23-2024 End: 04-23-2024 Office outpatient visit 15 minutes Winnie Lynn MD Work Phone: [facility] Comment on above: Neuromuscular disord er ([facility]) (Primary Dx); Acute midline low back pain without sciatica Start: 04-23-2024 End: 04-23-2024 ambulatory [facility] Start: 04-09-2024 End: 04-09-2024 ambulatory [facility] Start: 11-14-2023 End: 11-14-2023 ambulatory [facility] Start: 10-31-2023 End: 10-31-2023 ambulatory [facility] Start: 10-31-2023 Encounter for genera l adult medical examination without abnormal findings [facility] Start: 09-20-2023 Refill [facility] Rodriguez [facility] Comment on above: PAD (peripheral natividad ry disease) ([facility]); Raynaud's disease without gangrene Procedures Date Procedure Procedure Detail Performing Clinician Start: 05-08-2024 Quick Strep (POC) Start: 10-31-2023 Adult depression screening assessment Winnie Lynn MD Work Phone: Start: 10-29-2022 Adult depression screening assessment Sejal CAMPUZANO Plan of Treatment Date Care Activity Detail Author Start: 04-25-2025 Adult BMI Screening Adult BMI Screen ing [facility] Start: 04-25-2025 Tobacco Screening Tobacco Screening [facility] Start: 11-02-2024 End: 11-02-2024 Patient encounter procedure 11/02/2024 9:30 AM EDT [facility] [address] [place], [place] [address] [place] [address] Winnie Lynn MD [address] [place] [address], [address] [place], [place] [id number] [facility] Start: 10-30-2024 Adult BMI Screening Adult BMI Screen ing [facility] Start: 10-30-2024 Depression Screening Depression Scre ening [facility] Start: 10-30-2024 Fall Risk Screening Fall Risk Screen ing [facility] Start: 10-30-2024 Medicare Annual Well ness Visit Medicare Annual Wellness Visit [facility] Start: 10-30-2024 Tobacco Screening Tobacco Screening [facility] Start: 07-04-2024 COVID-19 Vaccine ( season) COVID-19 Vaccine () [facility] Start: 05-08-2024 End: 05-08-2024 Patient encounter procedure 05/08/2024 10:45 AM EST [facility] [place] [address] Winnie Lynn MD [address] [place] [address], [address] [place], [place] [id number] [facility] Start: 05-06-2024 End: 05-06-2024 Patient encounter procedure 05/06/2024 10:45 AM EST Office Visit [facility] [address] [place] [id number] Winnie Lynn MD [address] [facility], [address] [place], [place] [id number] [facility] Start: 03-01-2024 Influenza vaccination Influenza Vacc ine [facility] Start: 01-27-2024 End: 01-27-2024 Patient encounter procedure 01/27/2024 3:00 PM EDT Office Visit [facility] [address] [place] [address] [place] [address] [place] [address] [place] [address] [address] [place] [address] [facility] Start: 01-06-2024 End: 01-06-2024 Patient encounter procedure [facility] Start: 12-26-2023 Tobacco Screening Tobacco Screening [facility] Start: 12-18-2023 Adult BMI Screening Adult BMI Screen ing [facility] Start: 10-31-2023 End: 10-31-2023 Patient encounter procedure 10/31/2023 10:15 AM EDT Office Visit [facility] [address] [place] [id number] Winnie Lynn MD [address] [facility], [address] [place], [place] [id number] [facility] Start: 10-30-2023 Depression Screening Depression Scre ening [facility] Start: 10-30-2023 Fall Risk Screening Fall Risk Screen ing [facility] Start: 10-30-2023 Medicare Annual Well ness Visit Medicare Annual Wellness Visit [facility] Start: 07-06-2023 COVID-19 Vaccine ( season) COVID-19 Vaccine () [facility] Start: 04-08-2023 DTaP,Tdap and Td Vaccines (2 - Td or Tdap) DTaP,Tdap and Td Vaccines (2 - Td or Tdap) [facility] Immunizations Immunization Date Immunization Notes Care Provider Fa cility 05-11-2023 Covid-19, Mrna, Lnp- s, Pf, 30 Mcg/0.3 Ml Dose, Luis Miguel-sucrose Sejal [facility] 05-11-2023 Influenza Vaccine, Quadrivalent, Adjuvanted Sejal [facility] 05-11-2023 zoster vaccine recombinant Sejal [facility] 05-11-2023 influenza virus vacc ine, unspecified formulation Winnie Lynn MD Work Phone: [facility] 01-28-2023 zoster vaccine recombinant Sejal [facility] 04-23-2022 Covid-19, Mrna, Lnp- s, Bivalent, Pf, 30mcg/0.[address] [facility] 04-23-2022 influenza, high dose seasonal, preservative-free Sejal [facility] 04-23-2022 Influenza, High-dose , Quadrivalent Sejal [facility] 05-04-2021 Influenza Vaccine, Quadrivalent, Adjuvanted Sejal [facility] 2020 COVID-19, mRNA, LNP- S, PF, 100mcg/0.5mL Dose Sejal [facility] 07-11-2020 COVID-19, mRNA, LNP- S, PF, 100mcg/0.5mL Dose Sejal [facility] 05-10-2020 influenza, injectabl e, quadrivalent, preservative free Sejal [facility] 04-11-2019 influenza virus vacc ine, unspecified formulation Sejal [facility] 05-09-2018 pneumococcal conjuga te vaccine, 13 valent Sejalalisha [facility] 04-09-2016 influenza virus vacc ine, unspecified formulation Sejal [facility] 07-25-2015 pneumococcal conjuga te vaccine, 13 valent Sejal [facility] 05-13-2015 influenza, high dose seasonal, preservative-free Sejalalisha [facility] 07-23-2014 pneumococcal polysaccharide vaccine, 23 valent Sejalalisha [facility] 03-23-2014 influenza, seasonal, injectable, preservative free Sejalalisha [facility] 04-08-2013 influenza, seasonal, injectable, preservative free Sejalalisha [facility] 04-08-2013 tetanus and diphther ia toxoids, adsorbed, preservative free, for adult use (2 Lf of tetanus toxoid and 2 Lf of diphtheria toxoid) [facility] 08-18-2009 novel influenza-H1N1 -09, preservative-free, injectable [facility] Payers Date Payer Category Payer Managed Care Other (unspecified) COMMERCIAL Member Subscriber Plan / Payer (Effective 2017-Present) Name: Kyle Nayjefferson Blood Relation to Subscriber: Self Name: Nay Wright Payer ID: Not on file Group ID: Type: Not on file Address: [address] [place] [address] [id number] 07-01-2017 Unknown COMMERCIAL COMME RCIAL - GENERIC PLAN [id number] 07/01/2017-Present [phone] [place] [id number] 07-01-2017 Unknown [id number] 08-01-2012 Medicare [id number] 08-01-2012 Medicare [id number] 1945 Unknown [id number] 1945 Unknown [id number] 1945 Unknown [id number] 1945 Unknown [id number] 1947 Unknown [id number] 1947 Unknown [id number] Social History Date Type Detail Facility Start: 04-26-2022 End: 05-08-2024 Tobacco smoking status NHIS Never smoked tobacco [facility] Start: 04-26-2022 Tobacco use and exposure Smokeless tobacco non-user [facility] Start: 12-25-2022 End: 05-18-2024 Alcohol intake Current drinker of alcohol (finding) [facility] Start: 07-11-2020 End: 12-25-2022 History of Social function [facility] Start: 07-11-2020 End: 12-25-2022 Tobacco use panel [facility] Adolescent depressio n screening assessment 0 [facility] Start: 08-25-2020 Alcohol Comment 1 drink per day [facility] Start: 1945 Sex Assigned At Female P [facility] Start: 01-21-2021 Gender identity Identifies as female gender (finding) [facility] Start: 01-21-2021 Sexual orientation Heterosexual (fin ding) [facility] Start: 02-03-2015 End: 05-08-2024 Sex Female (finding) [facility] Clinical Notes 09-20-2023 to 05-18-2024 Winnie Lynn MD - 05/18/2024 10:15 AM ESTTelephone Encounter - Anel Hodges RN - 04/28/2024 11:20 AM EDTTelephone Encounter - Anel Hodges RN - 04/28/2024 11:20 AM EDT Note Date & Type Note Facility 05-18-2024 History of Presen t illness Narrative Subjective Patient ID: Nay Acevedo is a 78 y.o. female. Comes in for hospital follow-up. She was admitted briefly at [facility] following a fall. She had intractable back pain and was nonfunctional. Her back pain improved quickly with therapy. Imaging was negative for fracture. She then developed a cold and that is getting better. Physical and occupational therapy recommended a rehab stay but she declined that. Home health has visited her but she is not homebound. 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 It has not been progressive but she has had more trouble with her strength and balance as she has gotten older. She does use a walker. She would like to get some physical therapy as an outpatient. The following portions of the patient's history were reviewed and updated as appropriate: allergies, current medications, past medical history, past social history, and problem list. Review of Systems Objective Physical Exam Constitutional: Comments: Her color looks fine HENT: Nose: Congestion present. Pulmonary: Effort: Pulmonary effort is normal. Breath sounds: Normal breath sounds. Neurological: Mental Status: Mental status is at baseline. Assessment/Plan Physical therapy for strengthening and balance is appropriate. Concern was raised regarding osteoporosis. She did not suffer a fracture with her fall and a DEXA scan a few years ago showed only osteopenia. She does not want to pursue that any further at this time. Diagnoses and all orders for this visit: Neuromuscular disorder ([facility]) - [facility] [place], [place]; Future documented in this encounter [facility] 04-28-2024 Miscellaneous Notes Formattin g of this note might be different from the original. Images from the original note were not included. Transition of Care Additional Questions/Concerns Requiring PCP Follow-Up: Patient evaluated by therapy and recommended SNF. Patient refused. Agreeable to home with [facility]. This documentation is being used for Transition of Care purposes: Yes Goal: Patient will demonstrate a safe transition from hospital to home. Diagnosis on Discharge: Discharge Specialty: Orthopedic Name of Discharging Facility: [facility] Date of Facility Discharge: 04/26/24 - 04/27/24 Date of Interactive Contact and Name of Manager Administrative Services: Spoke with Nay on 04/28/24 Medication Review Completed: Yes Medication Reconciliation Questions/Concerns: Prednisone 20 mg BID x 5 days Follow Up Appointments with Providers: Primary: Winnie Lynn MD CHRIS 05/08/24 at 10:45 Specialty: Specialty: Specialty: Review of Pending Lab/Diagnostic Tests and Plan for Completion: CT lumbar spine was negative but shows degenerative changes. CT of Right hip was negative Assessment and Support of Treatment Regimen Adherence and Medication Management: -Patient is feeling a little better, Using walker around home and she did before due to balance issues -home care is coming today between 2-3pm to begin -patient has no questions regarding medication but the prednisone did keep her up last night -good family support and denies need of any further DME. Education Provided by ACN to Support Self-Management, Independent Living and ADLs: -Fall safety. Use Cane/walker when ambulating, wear non-skid socks or slippers around home -Granddaughter is living with her -Pain management -Take medications as prescribed. -ACN provided name and contact information to patient if needed. Communication with Home Health Agencies and Other Services Utilized/Needed by the Patient: [facility] documented in this encounter [facility] 04-28-2024 Telephone encount er Note Images from the original note were not included. Transition of Care Additional Questions/Concerns Requiring PCP Follow-Up: Patient evaluated by therapy and recommended SNF. Patient refused. Agreeable to home with [facility]. This documentation is being used for Transition of Care purposes: Yes Goal: Patient will demonstrate a safe transition from hospital to home. Diagnosis on Discharge: Discharge Specialty: Orthopedic Name of Discharging Facility: [facility] Date of Facility Discharge: 04/26/24 - 04/27/24 Date of Interactive Contact and Name of Manager Administrative Services: Spoke with Nay on 04/28/24 Medication Review Completed: Yes Medication Reconciliation Questions/Concerns: Prednisone 20 mg BID x 5 days Follow Up Appointments with Providers: Primary: Winnie Lynn MD CHRIS 05/08/24 at 10:45 Specialty: Specialty: Specialty: Review of Pending Lab/Diagnostic Tests and Plan for Completion: CT lumbar spine was negative but shows degenerative changes. CT of Right hip was negative Assessment and Support of Treatment Regimen Adherence and Medication Management: -Patient is feeling a little better, Using walker around home and she did before due to balance issues -home care is coming today between 2-3pm to begin -patient has no questions regarding medication but the prednisone did keep her up last night -good family support and denies need of any further DME. Education Provided by AC[facility] to Support Self-Management, Independent Living and ADLs: -Fall safety. Use Cane/walker when ambulating, wear non-skid socks or slippers around home -Granddaughter is living with her -Pain management -Take medications as prescribed. -ACN provided name and contact information to patient if needed. Communication with Home Health Agencies and Other Services Utilized/Needed by the Patient: [facility] Work Phone: 04-27-2024 Miscellaneous Notes Formattin g of this note might be different from the original. ED Outreach This documentation is being used for Transition of Care purposes: Yes/No: Yes ED Outreach Date: April 27, 2024 ED Outreach Method: COMMUNICATION METHOD: Telephone ED Outreach Attempt: second ED Outreach Outcome: No Answer/Busy Name of ED Facility: [facility] Date of ED Discharge: 04/25/2024 Discharge Diagnosis: Lumbar spondylosis ED Chief Complaint: back pain Current Symptom Status: Medication Changes Reviewed: Medication Questions/Concerns: Follow-up PCP Scheduled: Follow-up Specialist Scheduled: Follow up Testing Scheduled: Patient Contacted Office Prior to ED Visit: Additional Comments: Left message for patient to return call. Second attempt to contact patient. Will wait for patient to contact the office with any follow up needs. documented in this encounter [facility] 04-27-2024 Telephone encount er Note ED Outreach This documentation is being used for Transition of Care purposes: Yes/No: Yes ED Outreach Date: April 27, 2024 ED Outreach Method: COMMUNICATION METHOD: Telephone ED Outreach Attempt: second ED Outreach Outcome: No Answer/Busy Name of ED Facility: [facility] Date of ED Discharge: 04/25/2024 Discharge Diagnosis: Lumbar spondylosis ED Chief Complaint: back pain Current Symptom Status: Medication Changes Reviewed: Medication Questions/Concerns: Follow-up PCP Scheduled: Follow-up Specialist Scheduled: Follow up Testing Scheduled: Patient Contacted Office Prior to ED Visit: Additional Comments: Left message for patient to return call. Second attempt to contact patient. Will wait for patient to contact the office with any follow up needs. [facility] 04-23-2024 History of Presen t illness Narrative Subjective Patient ID: Nay Acevedo is a 78 y.o. female. She woke up on Saturday and noted sharp pain in the midline of her lower back. No injury. If she sits still she does not have much pain. Moving around she notices the sharp pain. No radiation to the buttock or down the legs. No bowel or urinary symptoms. No abdominal pain. Advil and local heat have not really made any difference in her symptoms. She had a bone density test a few years ago showing osteopenia but no osteoporosis. With her neuromuscular problem getting around is difficult as a baseline. The following portions of the patient's history were reviewed and updated as appropriate: allergies, current medications, past medical history, past social history, past surgical history, and problem list. Review of Systems Objective Physical Exam Constitutional: Comments: She does not appear acutely in distress Musculoskeletal: Comments: No pain with percussion over the spine itself. Some lumbar paraspinal muscle tightness. Straight leg bilaterally causes her discomfort in the center of her low back. Skin: Comments: No rash or bruising over the area of pain Neurological: Mental Status: Mental status is at baseline. Assessment/Plan Discussed with her getting an x-ray to rule out compression fracture or other acute process. It is very difficult for her to get around and she does not want to travel into the hospital if that can be avoided. Certainly a wheelchair could be used but she does not want to do that. Short course trial of tramadol to see if her pain is controlled and resolves. If not she will need imaging. Diagnoses and all orders for this visit: Neuromuscular disorder (CMS-HCC) Acute midline low back pain without sciatica - traMADoL (ULTRAM) 50 mg tablet; Take 1 tablet (50 mg total) by mouth every 6 (six) hours as needed for pain for up to 5 days. documented in this encounter [facility] 09-20-2023 Miscellaneous Notes Formattin g of this note might be different from the original. Refill request. documented in this encounter [facility] 09-20-2023 Telephone encount er Note Refill request. [facility] Evaluation note Diagnosis PAD (peripheral artery disease) ([facility]) Unspecified peripheral vascular disease Raynaud's disease without gangrene [facility] Diagnosis Neuromuscular disorder ([facility])- Primary Unspecified myoneural disorders Acute midline low back pain without sciatica documented [facility]* Diagnosis Onset Date Resolution Status Admit Date Sore throat noneactive May 08, 2024 3:50pm [facility] Work Phone: Evaluation note* Diagnosis Neuromuscular disorder ([facility])- Primary Unspecified myoneural disorders documented [facility] this encounter [facility] on filedocumented in this encounter [facility]ructionsNot on filedocumented in this encounter [facility]ructionsNot on filedocumented in this encounter [facility]ructionsNot on filedocumented in this encounter [facility] Summary Purpose Family History No Family History Records FoundNo Family History Records Found Advance Directives No Advanced Directives Records Found Advance Directive Response Recorded Date/ Time Advance Directives No June 02, 2019 5:57pm Chief Complaint and Reason for Visit Chief Complaint Admit Date Sore throat May 08, 2024 3 :50pm Reason for Visit Admit Date Sore throat May 08, 2024 3 :50pm Additional Source Comments Reason for Visit (unrecogniz ed section and content) Reason Onset Date Comments Med Refill 09/20/2023 Reason Comments Back Pain Low back, no injury, no urinary problems Reason Onset Date Comments Er Follow-up 04/27/2024 Reason Onset Date Comments Transition Of Care 04/28/2024 Reason Comments hospital discharge F/u for back pain, w ants PT Care Teams (unrecognized sec tion and content) Bus Person Dishwasher Relationship Specialty Start Date End Date Winnie Lynn MD [address] [place] [address], [address] [place], [place] [id number] PCP - General Pediatrics 04/10/17 Bus Person Dishwasher Relationship Specialty Start Date End Date Winnie Lynn MD [address] [place] [address], [address] [place], [place] [id number] PCP - General Pediatrics 04/10/17 Bus Person Dishwasher Relationship Specialty Start Date End Date Winnie Lynn MD [address] [place] [address], [address] [place], [place] [id number] PCP - General Pediatrics 04/25/24 Team Status: Active Member Role Status Dates Winnie Lynn MD Primary Care Provider Active Team Status: Inactive Member Role Status Dates Melvina Vuong APRN Attending Provider Active Start: May 08, 2024 End: May 08, 2024 Winnie Lynn MD Primary Care Provider Active Start: May 08, 2024 End: May 08, 2024 Bus Person Dishwasher Relationship Specialty Start Date End Date Winnie Lynn MD [address] [place] [address], [address] [place], [place] [phone] PCP - General Pediatrics 04/25/24 INFORMATION SOURCE (unrecogn ized section and content) DATE CREATED AUTHOR 04/26/2024 [facility] DATE CREATED AUTHOR AUTHOR'S INES ELIKATIA 05/20/[address] [facility] Amb[facility] Goals (unrecognized section and content) Goals may be documented in a n alternate section FOR RECORDS PERTAINING TO PATIENTS WHO ARE OR HAVE BEEN ENROLLED IN A CHEMICAL DEPENDENCY/SUBSTANCEABUSE PROGRAM, SOME INFORMATION MAY BE OMITTED. This clinical summary was aggregated from multiple sources. Caution should be exercised in using it in the provision of clinical care. This summary normalizes information from multiple sources, and as a consequence, information in this document may materially change the coding, format and clinical context of patient data. In addition, data may be omitted in some cases. CLINICAL DECISIONS SHOULD BE BASED ON THE PRIMARY CLINICAL RECORDS. [employer] provides no warranty or guarantee of the accuracy or completeness of information in this document.
[2024-05-31 11:57] LABS: Basophils Percent Auto 0.6 % (0.2-2.0); Eosinophils Percent Auto 0.6 % (0.9-7.0); Hematocrit 36.8 % (36.0-48.0); Hemoglobin 12.5 g/dL (12.0-16.0); Immature Granulocytes Pct Auto 1.4 % (0.0-0.5); Lymphocytes Absolute Auto 0.8 10^3/uL (1.2-3.8); Lymphocytes Percent Auto 11.9 % (20.5-60.0); Mean Corpuscular Hemoglobin 32.4 pg (26.7-34.0); Mean Corpuscular Volume 95.3 fL (81.0-99.0); Monocytes Absolute Auto 0.8 10^3/uL (0.3-0.8); Monocytes Percent Auto 11.7 % (1.7-12.0); Neutrophils Absolute Auto 5.2 10^3/uL (1.4-6.5); Neutrophils Percent Auto 73.8 % (43.0-75.0); Platelet Count 291 10^3/uL (150-450); Red Blood Count 3.86 10^6/uL (4.20-5.40); Red Cell Distribution Width 11.4 % (11.0-15.0); White Blood Count 7.1 10^3/uL (4.0-11.0)
[2024-05-31 12:09] LABS: Anion Gap 13.8; BUN Creatinine Ratio 16.8; Calcium 9.4 mg/dL (8.5-10.1); Carbon Dioxide 27.9 mmol/L (21.0-32.0); Chloride 103 mmol/L (98-107); Estimated GFR (African America >60 (>=60 mL/min/1.73m^2); Estimated GFR (Non-African Ame 57 (>=60 mL/min/1.73m^2); Glucose 117 mg/dL (74-106); Potassium 3.7 mmol/L (3.5-5.1); Sodium 141 mmol/L (136-145)
[2024-05-31 12:13] LABS: Influenza Virus A Antigen Negative; Influenza Virus B Antigen Negative; Internal Control Within Normal Limits
[2024-05-31 12:14] LABS: Internal Control Within Normal Limits; SARS-CoV-2 Ag NEGATIVE (NEGATIVE)
[2024-05-31 13:16] LABS: Bilirubin Urine NEGATIVE (NEGATIVE); Blood Urine NEGATIVE (NEGATIVE); Clarity Urine CLEAR (CLEAR); Color Urine YELLOW (YELLOW); Glucose Urine UA NEGATIVE (NEGATIVE); Ketones Urine NEGATIVE (NEGATIVE); Leukocyte Esterase Urine NEGATIVE (NEGATIVE); Nitrite Urine NEGATIVE (NEGATIVE); Protein Urine TRACE mg/dL (NEG/TRACE); Urobilinogen Urine 0.2 EU/dL (0.2-1.0)
[2024-05-31 13:30] LABS: Bacteria Urine TRACE #/HPF (NONE SEEN); Cast Seen? NONE SEEN #/LPF (NONE SEEN); Crystals Seen? None Seen #/HPF (None Seen); Mucus Urine TRACE (NONE SEEN); RBC Urine NONE SEEN #/HPF (0-2); Squamous Epithelial Cell Urine FEW #/LPF (NONE/RARE); Urine Culture Indicated NO; WBC Urine NONE SEEN #/HPF (NONE SEEN)
--- OUTSIDE RECORDS SUMMARY | 2024-05-31 16:22 | XMS_ITS | CCD ---
Author Organization [facility] Care Team Providers Care Front Office Administrator Name Role Phone Winnie Lynn MD Primary [...] sources) Erythromycin; Translations: [ERYTHROMYCIN] Drug Allergy 08-25-2020 [facility] (7 sources) Penicillins; Translations: [PENICILLINS] Propensity to adverse reactions to drug 04-10-2017 [facility] Medications Current Medications Medication Drug Class(es) Dates Sig (Normalized) Sig (Original) Bisoprolol / hydroCHLOROthiazide (6 sources) Thiazide Diuretic, beta-Adrenergic Ramon Start: 05-08-2024 take 1 tablet by mouth once daily Bisoprolol-[place] chlorothiazide 5-6.25 mg tablet Active 1 TAB [...] mg tablet Indications: PAD (peripheral artery disease) ([facility]) , Raynaud's disease without gangrene TAKE 1 [...] Melvina Vuong on 05-08-2024 Quick Strep (POC) [facility] XR SPINE LUMBAR 2 OR 3 VWSon [...] Muñoz MD on 04/25/2024 1:18 PM Normal [facility] COMPREHENSIVE METABOLIC PANE Binu 04-09-2024 Albumin [Mass/Vol] 4.0 g/dL Normal 3.2-5.3 [facility] Comment on above: Performed By: #### H A1C, CMP, 58211-0, THYR, 72350-0 #### [facility] ([id number]) [address], [address] [place] [address] ALP [Catalytic activity/Vol] 90 U/L Normal 39-130 [facility] Comment on above: Performed By: #### H A1C, CMP, 14143-1, THYR, 91780-0 #### [facility] ([id number]) [address], [address] [place] [address] ALT [Catalytic activity/Vol] 14 U/L Normal 0-31 [facility] Comment on above: Performed By: #### H A1C, CMP, 95421-3, THYR, 86342-3 #### [facility] ([id number]) [address], [address] [place] [address] Anion gap [Moles/Vol] 9 mmol/L Normal 5-15 [facility] Comment on above: Performed By: #### H A1C, CMP, 93027-2, THYR, 90755-0 #### [facility] ([id number]) [address], [address] [place] [address] AST [Catalytic activity/Vol] 17 U/L Normal 0-41 [facility] Comment on above: Performed By: #### H A1C, CMP, 39390-1, THYR, 22902-1 #### [facility] ([id number]) [address], [address] [place] [address] Bilirubin [Mass/Vol] 0.6 mg/dL Normal 0.3-1.2 [facility] Comment on above: Performed By: #### H A1C, CMP, 48769-9, THYR, 96736-8 #### [facility] ([id number]) [address], [address] [place] [address] Calcium [Mass/Vol] 9.2 mg/dL Normal 8.5-10.5 [facility] Comment on above: Performed By: #### H A1C, CMP, 68582-6, THYR, 95149-8 #### [facility] ([id number]) [address], [address] [place] [address] Chloride [Moles/Vol] 103 mmol/L Normal 98-109 [facility] Comment on above: Performed By: #### H A1C, CMP, 85950-8, THYR, 94078-0 #### [facility] ([id number]) [address] [place] [address] CO2 [Moles/Vol] 30 mmol/L Normal 22-32 [facility] Comment on above: Performed By: #### H A1C, CMP, 10878-9, THYR, 00099-6 #### [facility] ([id number]) [address], [address] [place] [address] Creatinine [Mass/Vol] 0.75 mg/dL Normal 0.40-1.00 [facility] Comment on above: Result Comment: METH OD TRACEABLE TO IDMS STANDARD Performed By: #### H A1C, CMP, 51790-9, THYR, 10383-0 #### [facility] ([id number]) [address] [place] [address] GFR/1.73 sq M.predicted among non-blacks MDRD (S/P/Bld) [Vol rate/Area] 82 mL/min/{1.73_m2} Normal >59 [facility] Comment on above: Result Comment: Reported eGFR is based on the CKD-EPI 2020 equation that does not use a race coefficient. Performed By: #### H A1C, CMP, 59617-4, THYR, 08398-7 #### [facility] ([id number]) [address], [address] [place] [address] Glucose [Mass/Vol] 111 mg/dL High 65-99 [facility] Comment on above: Performed By: #### H A1C, CMP, 52761-4, THYR, 29820-0 #### [facility] ([id number]) [address] [place] [address] Potassium [Moles/Vol] 3.7 mmol/L Normal 3.5-5.0 [facility] Comment on above: Performed By: #### H A1C, CMP, 49773-7, THYR, 76982-7 #### [facility] ([id number]) [address], [address] [place] [address] Protein [Mass/Vol] 6.3 g/dL Normal 6.0-8.0 [facility] Comment on above: Performed By: #### H A1C, CMP, 74085-3, THYR, 94670-2 #### [facility] ([id number]) [address], [address] [place] [address] Sodium [Moles/Vol] 142 mmol/L Normal 134-146 [facility] Comment on above: Performed By: #### H A1C, CMP, 62884-5, THYR, 19309-7 #### [facility] ([id number]) [address], [address] [place] [address] Urea nitrogen [Mass/Vol] 26 mg/dL Normal 5-27 [facility] Comment on above: Performed By: #### H A1C, CMP, 81543-3, THYR, 32443-0 #### [facility] ([id number]) [address], [address] [place] [address] HGB A1C (GLYCO-HGB)on 2023 Glucose [Mass/Vol] 108 mg/dL Normal [facility] Comment on above: Performed By: #### H A1C, CMP, 78719-4, THYR, 10921-0 #### [facility] ([id number]) [address], [address] [place] [address] HbA1c (Bld) [Mass fraction] 5.4 % Normal 4.4-5.6 [facility] Comment on above: Result Comment: NOTE ADA Guidelines Result HgbA1c Normal : less than 5.7 % Prediabetes : 5.7 % to 6.4 % Diabetes : > 6.4 % Use with caution in patients with abnormal hemoglobin variants as the half-life of red blood cells and in vivo glycation rates are affected. Performed By: #### H A1C, CMP, 77191-9, THYR, 29426-2 #### [facility] ([id number]) [address], [address] [place] [address] Lipid 1996 panelon 4 Cholesterol [Mass/Vol] 192 mg/dL Normal 150-200 [facility] Comment on above: Performed By: #### H A1C, CMP, 21132-2, THYR, 67292-4 #### [facility] ([id number]) [address], [address] [place] [address] Cholesterol in HDL [Mass/Vol] 59 mg/dL Normal >39 [facility] Comment on above: Result Comment: HDL <40 mg/dL - High Risk HDL > or = 40mg/dL- Desirable HDL >60 mg/dL - Negative Risk Performed By: #### H A1C, CMP, 67909-2, THYR, 09480-5 #### [facility] ([id number]) [address], [address] [place] [address] Cholesterol in LDL [Mass/Vol] 103 mg/dL Normal <130 [facility] Comment on above: Result Comment: LDL <100 mg/dL - Desirable LDL >160 mg/dL - High Risk Performed By: #### H A1C, CMP, 50163-9, THYR, 95666-7 #### [facility] ([id number]) [address], [address] [place] [address] Cholesterol in VLDL [Mass/Vol] 30 mg/dL Normal 0-30 [facility] Comment on above: Performed By: #### H A1C, CMP, 91929-3, THYR, 29162-8 #### [facility] ([id number]) [address], [address] [place] [address] CHOLESTEROL:HDL 3.3 Normal 1.0-5.0 [facility] Comment on above: Performed By: #### H A1C, CMP, 15984-2, THYR, 12940-0 #### [facility] ([id number]) [address], [address] [place] [address] Triglyceride [Mass/Vol] 150 mg/dL Normal 27-150 P [facility] Comment on above: Performed By: #### H A1C, CMP, 72713-2, THYR, 69654-7 #### [facility] ([id number]) [address], [address] [place] [address] THYROID PROFILEon 04-09-2024 Free T4 [Mass/Vol] 1.11 ng/dL Normal 0.61-1.60 [facility] Comment on above: Performed By: #### H A1C, [facility], 91718-3, THYR, 31312-7 #### [facility] ([id number]) [address], [address] [place] [address] TSH 0.12 uIU/mL Low 0.49-4.67 [facility] Comment on above: Performed By: #### H A1C, CMP, 00892-5, THYR, 58322-5 #### [facility] ([id number]) [address], [address] [place] [address] Vitamin D+Metabolites [Mass/ Vol]on 04-09-2024 VITAMIN D 25 HYD TOT 79.9 ng/mL Normal 30-100 [facility] Comment on above: Result Comment: Vitamin D status 25 [place] Vitamin D Deficiency <20 ng/mL Insufficiency 20-29 ng/mL Sufficiency 30-100 ng/mL Toxicity >100 ng/mL NOTE: A pediatric reference range has not been established by the envelope patternmaker of this kit. The [place] [employer] recommends a Vitamin D level of = or >20ng/mL in infants and children. Performed By: #### H A1C, CMP, 49408-7, THYR, 75450-1 #### [facility] ([id number]) 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 MAMM SCREENING BILATERAL W CAD MAMM [...] PM 1 c MAMM 1 YR Normal [facility] Vital Signs Date Time Vital Sign Value Performing Clinician Faci nurys 05-18-2024 10:04-0500 Body mass index (BMI) [Ratio] 23.05 kg/m2 Winnie Lynn MD Work Phone: [facility] 05-18-2024 10:04-0500 Body weight 53.52 kg Winnie Lynn MD Work Phone: [facility] 05-18-2024 10:04-0500 Diastolic blood pressure 75 mm[Hg] Winnie Lynn MD Work Phone: [facility] 05-18-2024 10:04-0500 Heart rate 82 /min Winnie Lynn MD Work Phone: [facility] 05-18-2024 10:04-0500 Systolic blood pressure 133 mm[Hg] Winnie Lynn MD Work Phone: [facility] 05-08-2024 16:04-0500 Body height 154.[address] [facility] 05-08-2024 16:04-0500 Body mass index (BMI) [Ratio] 22.8 kg/m2 [facility] 05-08-2024 16:04-0500 Body temperature 97.8 [degF] [facility] 05-08-2024 16:04-0500 Body weight 54.[address] [facility] 05-08-2024 16:04-0500 Diastolic blood pressure 81 mm[Hg] [facility] 05-08-2024 16:04-0500 Heart rate 70 /min [facility] 05-08-2024 16:04-0500 Respiratory rate 18 /min [facility] 05-08-2024 16:04-0500 SaO2% (BldA) [Mass fraction] 97 % [facility] 05-08-2024 16:04-0500 Systolic blood pressure 163 mm[Hg] [facility] 04-23-2024 10:50-0400 Body mass index (BMI) [Ratio] 22.26 kg/m2 Winnie Lynn MD Work Phone: [facility] 04-23-2024 10:50-0400 Body weight 51.71 kg Winnie Lynn MD Work Phone: [facility] 04-23-2024 10:50-0400 Diastolic blood pressure 70 mm[Hg] Winnie Lynn MD Work Phone: [facility] 04-23-2024 10:50-0400 Heart rate 86 /min Winnie Lynn MD Work Phone: [facility] 04-23-2024 10:50-0400 Systolic blood pressure 144 mm[Hg] Winnie Lynn MD Work Phone: [facility] Encounters Encounter Date Encounter Type Care Provider Facility Start: 05-18-2024 End: 05-18-2024 Office outpatient visit 15 minutes [facility] MD [facility] Comment on above: Neuromuscular disord er ([facility]) (Primary Dx) Start: 05-18-2024 End: 05-18-2024 ambulatory [facility] Start: 05-08-2024 End: 05-08-2024 ambulatory [facility] Work Phone: Start: 05-08-2024 End: 05-08-2024 Patient encounter procedure [facility] Work Phone: Start: 04-28-2024 End: 04-28-2024 Telephone encounter Anel Hodges RN [facility] Comment on above: Transition Of Care Start: 04-27-2024 End: 04-28-2024 Telephone encounter Yudith Lora C[facility] Comment on above: Er Follow-up Start: 04-25-2024 End: 04-25-2024 Emergency department patient visit [facility] Start: 04-23-2024 End: 04-23-2024 Office outpatient visit 15 minutes Winnie Lynn MD Work Phone: [facility] Comment on above: Neuromuscular disord er ([facility]) (Primary Dx); Acute midline low back pain without sciatica Start: 04-23-2024 End: 04-23-2024 ambulatory [facility] Start: 04-09-2024 End: 04-09-2024 ambulatory [facility] Start: 11-14-2023 End: 11-14-2023 ambulatory [facility] Start: 10-31-2023 End: 10-31-2023 ambulatory [facility] Start: 10-31-2023 Encounter for genera l adult medical examination without abnormal findings [facility] Start: 09-20-2023 Refill Sejal Rodriguez R[facility] Comment on above: PAD (peripheral natividad ry disease) ([facility]); Raynaud's disease without gangrene Procedures Date Procedure Procedure Detail Performing Clinician Start: 05-08-2024 Quick Strep (POC) Start: 10-31-2023 Adult depression screening assessment Winnie Lynn MD Work Phone: Start: 10-29-2022 Adult depression screening assessment Sejal CAMPUZANO Plan of Treatment Date Care Activity Detail Author Start: 04-25-2025 Adult BMI Screening Adult BMI Screen ing [facility] Start: 04-25-2025 Tobacco Screening Tobacco Screening [facility] Start: 11-02-2024 End: 11-02-2024 Patient encounter procedure 11/02/2024 9:30 AM EDT [facility] [address] [place], [place] [address] [place] [address] Winnie Lynn MD [address] [place] [address], [address] [place], [place] [id number] [facility] Start: 10-30-2024 Adult BMI Screening Adult BMI Screen ing [facility] Start: 10-30-2024 Depression Screening Depression Scre ening [facility] Start: 10-30-2024 Fall Risk Screening Fall Risk Screen ing [facility] Start: 10-30-2024 Medicare Annual Well ness Visit Medicare Annual Wellness Visit [facility] Start: 10-30-2024 Tobacco Screening Tobacco Screening [facility] Start: 07-04-2024 COVID-19 Vaccine ( season) COVID-19 Vaccine () [facility] Start: 05-08-2024 End: 05-08-2024 Patient encounter procedure 05/08/2024 10:45 AM EST [facility] [place] [address] Winnie Lynn MD [address] [place] [address], [address] [place], [place] [id number] [facility] Start: 05-06-2024 End: 05-06-2024 Patient encounter procedure 05/06/2024 10:45 AM EST Office Visit [facility] [address] [address] [place] [phone] Winnie Lynn MD [address] [facility], [address] [place], [place] [id number] [facility] Start: 03-01-2024 Influenza vaccination Influenza Vacc ine [facility] Start: 01-27-2024 End: 01-27-2024 Patient encounter procedure 01/27/2024 3:00 PM EDT [facility] [address] [place] [address] [place] [address] [place] [address] [place] [address] [address] [place] [address] [facility] Start: 01-06-2024 End: 01-06-2024 Patient encounter procedure [facility] Start: 12-26-2023 Tobacco Screening Tobacco Screening [facility] Start: 12-18-2023 Adult BMI Screening Adult BMI Screen ing [facility] Start: 10-31-2023 End: 10-31-2023 Patient encounter procedure 10/31/2023 10:15 AM EDT Office Visit [facility] [address] [facility] [address] [place] [phone] Winnie Lynn MD [address] [facility], [address] [place], [place] [id number] [facility] Start: 10-30-2023 Depression Screening Depression Scre ening [facility] Start: 10-30-2023 Fall Risk Screening Fall Risk Screen ing [facility] Start: 10-30-2023 Medicare Annual Well ness Visit Medicare Annual Wellness Visit [facility] Start: 07-06-2023 COVID-19 Vaccine ( season) COVID-19 Vaccine () [facility] Start: 04-08-2023 DTaP,Tdap and Td Vaccines (2 - Td or Tdap) DTaP,Tdap and Td Vaccines (2 - Td or Tdap) [facility] Immunizations Immunization Date Immunization Notes Care Provider Fa cility 05-11-2023 Covid-19, Mrna, Lnp- s, Pf, 30 Mcg/0.3 Ml Dose, Luis Miguel-sucrose Sejal Rodriguez [facility] 05-11-2023 Influenza Vaccine, Quadrivalent, Adjuvanted Sejal Rodriguez [facility] 05-11-2023 zoster vaccine recombinant Sejal Rodriguez [facility] 05-11-2023 influenza virus vacc ine, unspecified formulation Winnie Lynn MD Work Phone: [facility] 01-28-2023 zoster vaccine recombinant Sejal Rodriguez [facility] 04-23-2022 Covid-19, Mrna, Lnp- s, Bivalent, Pf, 30mcg/0.3 ml Sejal [facility] 04-23-2022 influenza, high dose seasonal, preservative-free Sejal [facility] 04-23-2022 Influenza, High-dose , Quadrivalent Sejal Rodriguez [facility] 05-04-2021 Influenza Vaccine, Quadrivalent, Adjuvanted Sejal Rodriguez [facility] 2020 COVID-19, mRNA, LNP- S, PF, 100mcg/0.5mL Dose Sejal [facility] 07-11-2020 COVID-19, mRNA, LNP- S, PF, 100mcg/0.5mL Dose Sejal [facility] 05-10-2020 influenza, injectabl e, quadrivalent, preservative free Sejal [facility] 04-11-2019 influenza virus vacc ine, unspecified formulation Sejal [facility] 05-09-2018 pneumococcal conjuga te vaccine, 13 valent Sejalalisha Rodriguez [facility] 04-09-2016 influenza virus vacc ine, unspecified formulation Sejal Rodriguez [facility] 07-25-2015 pneumococcal conjuga te vaccine, 13 valent Sejal Rodriguez [facility] 05-13-2015 influenza, high dose seasonal, preservative-free Sejalalisha Rodriguez [facility] 07-23-2014 pneumococcal polysaccharide vaccine, 23 valent Sejalalisha Rodriguez [facility] 03-23-2014 influenza, seasonal, injectable, preservative free Sejalalisha Rodriguez [facility] 04-08-2013 influenza, seasonal, injectable, preservative free Sejalalisha Rodriguez [facility] 04-08-2013 tetanus and diphther ia toxoids, adsorbed, preservative free, for adult use (2 Lf of tetanus toxoid and 2 Lf of diphtheria toxoid) [facility] 08-18-2009 novel influenza-H1N1 -09, preservative-free, injectable [facility] Payers Date Payer Category Payer Managed Care Other (unspecified) COMMERCIAL Member Subscriber Plan / Payer (Effective 2017-Present) Name: Kyle Nayjefferson Blood Relation to Subscriber: Self Name: Nay Wright Payer ID: Not on file Group ID: Type: Not on file Address: [address] [place] [address] [id number] 07-01-2017 Unknown COMMERCIAL COMME RCIAL - GENERIC PLAN [id number] 07/01/2017-Present [phone] [place] [id number] 07-01-2017 Unknown [id number] 08-01-2012 Medicare [id number] 08-01-2012 Medicare [id number] 1945 Unknown [id number] [id number] 1945 Unknown [id number] [id number] 1945 Unknown [id number] 2.1286 1945 Unknown [id number] [id number] 1945 Unknown [id number] [id number] 1945 Unknown [id number] [id number] Social History Date Type Detail Facility Start: 04-26-2022 End: 05-08-2024 Tobacco smoking status NHIS Never smoked tobacco [facility] Start: 04-26-2022 Tobacco use and exposure Smokeless tobacco non-user [facility] Start: 12-25-2022 End: 05-18-2024 Alcohol intake Current drinker of alcohol (finding) [facility] Start: 07-11-2020 End: 12-25-2022 History of Social function [facility] Start: 07-11-2020 End: 12-25-2022 Tobacco use panel [facility] Adolescent depressio n screening assessment 0 [facility] Start: 08-25-2020 Alcohol Comment 1 drink per day [facility] Start: 1945 Sex Assigned At Female [facility] Start: 01-21-2021 Gender identity Identifies as female gender (finding) [facility] Start: 01-21-2021 Sexual orientation Heterosexual (fin ding) [facility] Start: 02-03-2015 End: 05-08-2024 Sex Female (finding) [facility] Clinical Notes 09-20-2023 to 05-18-2024 Winnie Lynn [...] hospital follow-up. She was admitted briefly at [facility] following a fall. She had intractable back [...] all orders for this visit: Neuromuscular disorder ([facility]) - [facility] [place], [place]; Future documented in this encounter go[employer]ramble 04-28-2024 Miscellaneous Notes Formattin g of this note might be different from the original. Images from the original note were not included. Transition of Care Additional Questions/Concerns Requiring PCP Follow-Up: Patient evaluated by therapy and recommended SNF. Patient refused. Agreeable to home with [facility]. This documentation is being used for Transition of Care purposes: Yes Goal: Patient will demonstrate a safe transition from hospital to home. Diagnosis on Discharge: Discharge Specialty: Orthopedic Name of Discharging Facility: [facility] Date of Facility Discharge: 04/26/24 - 04/27/24 Date of Interactive Contact and Name of Cabin Service Agent: Spoke with Nay on 04/28/24 Medication Review [...] and Other Services Utilized/Needed by the Patient: [facility] documented in this encounter goBramble 04-28-2024 Telephone encount er Note Images from the original note were not included. Transition of Care Additional Questions/Concerns Requiring PCP Follow-Up: Patient evaluated by therapy and recommended SNF. Patient refused. Agreeable to home with [facility]. This documentation is being used for Transition of Care purposes: Yes Goal: Patient will demonstrate a safe transition from hospital to home. Diagnosis on Discharge: Discharge Specialty: Orthopedic Name of Discharging Facility: [facility] Date of Facility Discharge: 04/26/24 - 04/27/24 Date of Interactive Contact and Name of Cabin Service Agent: Spoke with Nay on 04/28/24 Medication Review [...] Other Services Utilized/Needed by the Patient: [facility] Work Phone: 04-27-2024 Miscellaneous Notes Formattin g of this note might be different from the original. ED Outreach This documentation is being used for Transition of Care purposes: Yes/No: Yes ED Outreach Date: April 27, 2024 ED Outreach Method: COMMUNICATION METHOD: Telephone ED Outreach Attempt: second ED Outreach Outcome: No Answer/Busy Name of ED Facility: [facility] Date of ED Discharge: 04/25/2024 Discharge Diagnosis: [...] follow up needs. documented in this encounter [facility] 04-27-2024 Telephone encount er Note ED Outreach This documentation is being used for Transition of Care purposes: Yes/No: Yes ED Outreach Date: April 27, 2024 ED Outreach Method: COMMUNICATION METHOD: Telephone ED Outreach Attempt: second ED Outreach Outcome: No Answer/Busy Name of ED Facility: [facility] Date of ED Discharge: 04/25/2024 Discharge Diagnosis: [...] the office with any follow up needs. [facility] 04-23-2024 History of Presen t illness Narrative [...] to 5 days. documented in this encounter [facility] 09-20-2023 Miscellaneous Notes Formattin g of this note might be different from the original. Refill request. documented in this encounter [facility] 09-20-2023 Telephone encount er Note Refill request. [facility] Evaluation note Diagnosis PAD (peripheral artery disease) ([facility]) Unspecified peripheral vascular disease Raynaud's disease without gangrene [facility] Diagnosis Neuromuscular disorder ([facility])- Primary Unspecified myoneural disorders Acute midline low back pain without sciatica [facility] Diagnosis Onset Date Resolution Status Admit Date Sore throat noneactive May 08, 2024 3:50pm [facility] Work Phone: Evaluation note* Diagnosis Neuromuscular disorder ([facility])- Primary Unspecified myoneural disorders [facility] filedocumented in [facility] filedocumented in this [facility] filedocumented in [facility] encounter [facility] filedocumented in this encounter [facility] Summary Purpose Family History No Family [...] Care Teams (unrecognized sec tion and content) Front Office Administrator Relationship Specialty Start Date End Date Winnie Lynn MD [address] [place] [address], [address] [place], [place] [phone] PCP - General Pediatrics 04/10/17 Front Office Administrator Relationship Specialty Start Date End Date Winnie Lynn MD [address] [place] [address], [address] [place], [place] [phone] PCP - General Pediatrics 04/10/17 Front Office Administrator Relationship Specialty Start Date End Date Winnie Lynn MD [address] [place] [address], [address] [place], [place] [phone] PCP - General Pediatrics 04/25/24 Team Status: Active Member Role Status Dates Winnie Lynn MD Primary Care Provider Active Team Status: Inactive Member Role Status Dates Melvina Vuong APRN Attending Provider Active Start: May 08, 2024 End: May 08, 2024 Winnie Lynn MD Primary Care Provider Active Start: May 08, 2024 End: May 08, 2024 Front Office Administrator Relationship Specialty Start Date End Date Winnie Lynn MD [address] [place] [address], [address] [place], [place] [phone] PCP - General Pediatrics 04/25/24 INFORMATION SOURCE (unrecogn ized section and content) DATE CREATED AUTHOR 04/26/2024 [facility] DATE CREATED AUTHOR AUTHOR'S INES ELIKATIA 05/20/2024 [facility] Amb[facility] Goals (unrecognized section [...] BE BASED ON THE PRIMARY CLINICAL RECORDS. [employer] provides no warranty or guarantee of the accuracy or completeness of information in this document.
[2024-05-31] MEDS: 0.9 % SODIUM CHLORIDE 1,000 ML 100 ML IV (17:48)
[2024-05-31] MEDS: CILOSTAZOL 100 MG TABLET 50 MG PO (17:48)
[2024-05-31] MEDS: TRAZODONE HCL 50 MG TABLET 25 MG PO (23:52)
[2024-06-01 04:00] VITALS: BP 143/63; PULSE 64; TEMP 36.8; O2SAT 90
[2024-06-01] MEDS: 0.9 % SODIUM CHLORIDE 1,000 ML 100 ML IV (04:44)
[2024-06-01] MEDS: LEVOTHYROXINE SODIUM 88 MCG TABLET PO (05:49)
[2024-06-01 06:17] LABS: Basophils Percent Auto 0.6 % (0.2-2.0); Eosinophils Absolute Auto 0.1 10^3/uL (0.0-0.7); Eosinophils Percent Auto 2.4 % (0.9-7.0); Hematocrit 31.4 % (36.0-48.0); Hemoglobin 10.6 g/dL (12.0-16.0); Immature Granulocytes Abs Auto 0.01 10^3/uL (0.00-0.03); Immature Granulocytes Pct Auto 0.2 % (0.0-0.5); Lymphocytes Percent Auto 20.6 % (20.5-60.0); Mean Corpuscular HGB Conc 33.8 g/dL (29.9-35.2); Mean Corpuscular Hemoglobin 32.3 pg (26.7-34.0); Mean Corpuscular Volume 95.7 fL (81.0-99.0); Mean Platelet Volume 10.3 fL (9.5-13.5); Monocytes Absolute Auto 0.6 10^3/uL (0.3-0.8); Monocytes Percent Auto 12.4 % (1.7-12.0); Neutrophils Absolute Auto 3.1 10^3/uL (1.4-6.5); Neutrophils Percent Auto 63.8 % (43.0-75.0); Platelet Count 261 10^3/uL (150-450); Red Blood Count 3.28 10^6/uL (4.20-5.40); Red Cell Distribution Width 11.5 % (11.0-15.0); White Blood Count 4.9 10^3/uL (4.0-11.0)
[2024-06-01 06:48] LABS: Alanine Aminotransferase 18 U/L (14-59); Albumin Globulin Ratio 0.8; Albumin Level 2.5 g/dL (3.4-5.0); Alkaline Phosphatase 97 U/L (46-116); Anion Gap 12.3; Aspartate Amino Transferase 12 U/L (15-37); BUN Creatinine Ratio 15.4; Bilirubin Total 0.5 mg/dL (0.2-1.0); Calcium 8.3 mg/dL (8.5-10.1); Carbon Dioxide 26.5 mmol/L (21.0-32.0); Chloride 108 mmol/L (98-107); Estimated GFR (African America >60 (>=60 mL/min/1.73m^2); Estimated GFR (Non-African Ame >60 (>=60 mL/min/1.73m^2); Globulin 3.1 g/dL; Glucose 101 mg/dL (74-106); Potassium 3.8 mmol/L (3.5-5.1); Sodium 143 mmol/L (136-145); Total Protein 5.6 g/dL (6.4-8.2)
[2024-06-01] MEDS: CILOSTAZOL 100 MG TABLET 50 MG PO (08:27)
[2024-06-01] MEDS: ROPINIROLE HCL 1 MG TABLET PO (08:27)
[2024-06-01] MEDS: ENOXAPARIN SODIUM 40 MG/0.4 ML SYRINGE SUBQ (08:28)
--- NOTE | 2024-06-01 10:00 | CM.NOTE ---
Rounds made with Dr. Welsh, discussed with pt admitting diagnosis and discussed skilled therapy. Dr. Welsh discussed with pt OBS status and skilled out of pocket cost. Talked with SS and she will discuss cost with pt. PT is requesting [facility] [place] for skilled therapy.
--- NOTE | 2024-06-01 11:49 | SWNOTE1 ---
Medicare Outpatient Observation Notice reviewed and discussed with patient. Pt. verbalized understanding and signed the form. Original given to patient and copy placed in patient?s chart.
--- NOTE | 2024-06-01 11:49 | SWNOTE1 ---
SW met with pt to discuss dc needs. Therapy is recommending short term SNF stay to get stronger. SW did receive message from case management and pt would like the cost for [facility] and [facility] for private pay. Pt is in observation status and does not have a qualifying diagnosis for inpt status and will have to pay [place] of [place] for rehab. SW spoke to Joanne at [facility] and Demi at [facility]. Cost ranges from $3,500 to $5,500. SW spoke to pt about the costs and she is not able to pay out of pocket. Pt spoke to her son as well and he is a physical therapist and he voiced to her that pt can't pay. Pt voiced that she is motivated and prior to this she was just lazy. She stated she used to walk all around her neighborhood. She voiced she would like to get back to this and will go to outpt therapy. SW offered home health to be set up, but she stated they came last time and only had a few visits and it did not do anything. She stated her PCP already sent an outpt order to [place] and she would like to do this. MONISHA again offered SNF or HH, but pt refusing at this time and wants to do outpt in [place]. SW to verify they have an order from her PCP. SW spoke to doctor and he will discharge her today. MONISHA called [facility] [place] outpt and they do have order. MONISHA attempted to schedule while in room with pt, but pt stated she has to look at her calendar. Pt voiced she will call outpt once she is home and can check her schedule. MONISHA put the outpt therapy number in [place] in pt's discharge paperwork. Pt's grand-daughter will be picking pt up around 1:30. MONISHA notified pt's nurse.
[2024-06-01 11:50] VITALS: O2SAT 95
--- NOTE | 2024-06-01 12:21 | PM.HP ---
HPI H&P: HPI History of Present Illness Chief complaint: WEAKNESS, GENERALIZED WEAKNESS Narrative: HPI and Hospital Course: 78-year-old female who currently lives with her family at home, uses a walker to ambulate was brought over to the hospital for generalized weakness/ambulatory dysfunction and frequent falls. Patient was admitted to the hospital about a month ago for similar complaints and was discharged home with home health as she refused placement to rehab facility. According to the patient she has had at least 3 falls since March. She reports that she has unsteady gait and that has she sometime does not lift her legs like she should and would trip over and fall. She denies LOC, head trauma. Work up in ED did not reveal any sig finding. She was admitted for PT/OT eval. Patient likely previously was recommended to go to rehab but unfortunately, she does not meet inpatient criteria for admission and medicare will not pay for her rehab stay unless she was inpatient for 3 days. This was discussed with patient and that she would have to pay out of pocket for rehab placement but she refused and would prefer to go home. Opioid HPI Opioid Management Most Recent Pain and Opioid Data: Last Pain Scale 2 06/01/24 08:42 06/01/24 Last Pain Intensity 2 06/01/24 08:42 06/01/24 Last Pain Assessment 06/01/24 11:51 Last ORT Total Score 1 05/31/24 16:48 05/31/24 Last ORT Risk Category Low Risk 05/31/24 16:48 05/31/24 Review of Systems ROS Status of ROS 10 or more systems reviewed and unremarkable except as noted in history and below PFSH PFS Medical History (Updated 06/01/24 @ 12:27 by Shaikh Blaise MD) Primary hypertension ?I10 - Essential (primary) hypertension (ICD-10) Restless leg syndrome ?G25.81 - Restless legs syndrome (ICD-10) Hypothyroid ?E03.9 - Hypothyroidism, unspecified (ICD-10) Neuropathy ?G62.9 - Polyneuropathy, unspecified (ICD-10) Surgical History Hx of cholecystectomy ?Z90.49 - Acquired absence of other specified parts of digestive tract (ICD-10) Family History Son Family history of cancer Family history of diabetes mellitus Other Family history of stroke Social History Within the past year, how often did you have a drink containing alcohol: 4 or more times a week Within the past year, how many standard drinks containing alcohol did you have on a typical day: 1 or 2 Within the past year, how often did you have six or more drinks on one occasion: never Total score: 0 Score interpretation: Questions 2 and 3 are 0. It can be assumed that the patient's drinking is below the recommended limits. However, please confirm the accuracy of the patient's alcohol intake over the last few months. Smoking status: Never smoker Non-prescribed substance use: denies use Highest level of school completed/degree received: Master's degree Are you now , , , , never or living with a partner: In a typical week, how many times do you talk on the telephone with family, friends, or neighbors: 3 or more times per week How often do you get together with friends or relatives: 3 or more times per week How often do you attend gnosticist or confucianist services: 4 or more times per year Do you belong to any clubs or organizations such as gnosticist groups unions, fraternal or athletic groups, or school groups: yes Total score: 3 Score interpretation: A score of greater than or equal to 2 indicates the lowest level of social isolation. Little interest or pleasure in doing things: not at all Feeling down, depressed, or hopeless: not at all Feel stressed/tense/nervous/anxious/difficulty sleeping: not at all Do you think of yourself as: straight/heterosexual Gender Identity: female Meds Home Medications and Allergies Home Medications ?Medication ?Instructions ?Recorded ?Confirmed ?Type bisoprolol 5 1 tab PO DAILY 04/27/24 05/31/24 History mg-hydrochlorothiazide 6.25 mg tablet cilostazol 50 mg tablet 50 mg PO BID 04/27/24 05/31/24 History levothyroxine 88 mcg tablet 88 mcg PO DAILY 04/27/24 05/31/24 History ropinirole 1 mg tablet 1 mg PO DAILY 04/27/24 05/31/24 History bimatoprost 0.01 % eye drops 1 drp ophthalmic (eye) DAILY 05/31/24 05/31/24 History ([place]) Allergies Allergy/AdvReac Type Severity Reaction Status Date / Time Penicillins Allergy Unknown Unknown Verified 05/31/24 11:52 Exam Constitutional Vital Signs, click to edit/add: Last Vital Signs Temp 98.2 F 06/01/24 04:00 Pulse 64 06/01/24 04:00 Resp 18 06/01/24 04:00 BP 143/63 H 06/01/24 04:00 Pulse Ox 90 L 06/01/24 04:00 O2 Del Method Room Air 06/01/24 04:00 Documenting provider has reviewed patient's vital signs: yes Common normals: no apparent distress and oriented x3 General appearance: cooperative HENMT Common normals: normocephalic and head/scalp atraumatic Head and scalp: normocephalic and atraumatic Eye Common normals: conjunctivae normal and no scleral icterus Conjunctiva: conjunctiva(e) normal Respiratory Common normals: normal respiratory effort and clear to auscultation bilaterally Effort & inspection: able to speak in complete sentences Auscultation: clear to auscultation bilaterally Cardio Common normals: regular rate, S1 normal heart sound and S2 normal heart sound Rate: regular rate Heart sounds: S1 normal and S2 normal GI Common normals: Normal to inspection, nondistended, normoactive bowel sounds present, soft to palpation, non-tender and no hepatosplenomegaly Palpation: soft and no hepatosplenomegaly Extremity Common normals: no clubbing, cyanosis or edema Neuro Common normals: oriented x3, moves all extremities and no focal motor deficits Psych Common normals: mental status grossly normal, denies hallucinations, denies homicidal ideation and denies suicidal ideation Results Labs Labs: Short CBC 06/01/24 Range/Units 05:41 WBC 4.9 (4.0-11.0) 10^3/uL Hgb 10.6 L (12.0-16.0) g/dL Hct 31.4 L (36.0-48.0) % Plt Count 261 (150-450) 10^3/uL BMP 06/01/24 05:41 Sodium 143 Potassium 3.8 Chloride 108 H Carbon Dioxide 26.5 BUN 12.0 Creatinine 0.78 Glucose 101 Calcium 8.3 L Liver Function 06/01/24 Range/Units 05:41 Total Bilirubin 0.5 (0.2-1.0) mg/dL AST 12 L (15-37) U/L ALT 18 (14-59) U/L Alkaline Phosphatase 97 (46-116) U/L Albumin 2.5 L (3.4-5.0) g/dL Urine 05/31/24 Range/Units 12:29 Urine Color Yellow (YELLOW) Urine Clarity Clear (CLEAR) Urine pH 6.0 (5.0-9.0) Ur Specific [place] 1.020 (1.005-1.025) Urine Protein Trace (NEG/TRACE) mg/dL Urine Glucose (UA) Negative (NEGATIVE) mg/dL Assessment and Plan Assessment and Plan (1) Generalized weakness: (2) Frequent falls: (3) Primary hypertension: (4) Restless leg syndrome: (5) Hypothyroid: Qualifiers: Hypothyroidism type: acquired Qualified Code(s): E03.9 - Hypothyroidism, unspecified Plan Generalized weakness, frequent falls. No sig change from her baseline. Patient uses a walker and lives with her family. No inpatient need at this time. D/w patient about her options and that she should consider Assisted living facility or intermediate school teacher fdc if family is unable to provide her the care and support she needs. She was evaluated by PT/OT and was recommended SNF placement but patient refused and will prefer to go home. She communicated this to her son also. Patient is medically stable for discharge.
--- NOTE | 2024-06-02 15:16 | CM.DCFOLLOWU ---
Person spoke with: Nay How are you feeling? Better I made appt for outpt therapy How is your pain? No pain Did you understand your discharge instructions? Yes Do you have any questions about your discharge instructions? No Were you given any prescriptions at discharge? No Were you able to get your prescriptions filled? N/A Do you understand how to take your medications as ordered? Yes Do you have any questions about your follow up appointment and do you plan to keep your follow up appointment? I have f/u on Saturday and plan on going Is there anything else that you would like to discuss? No Questions/Comments/Concerns/Other:
== END 2024-06-01 14:07 | disposition home or self-care (01) ==
LOC: ER 15:00 → MS 16:20
PROVIDERS: Admitting Provider Internal Medicine; Emergency Provider Emergency Medicine; PCP Internal Medicine; Visit Provider Internal Medicine
DX: R53.1 Weakness (principal); I10 Essential (primary) hypertension; E03.9 Hypothyroidism, unspecified; G25.81 Restless legs syndrome; Z91.81 History of falling; Z20.822 Contact with and (suspected) exposure to COVID-19
CPT/HCPCS: 36415; 51798; 71045; 80048; 80053; 81001; 85025; 87040; 87804; 87811; 93005; 94761; 96372; 97161; 97165; 99285; G0378; J1650